=== PATIENT | female | born 1945 | race Caucasian/White ===

== ENCOUNTER 2018-02-13 15:06 | Outpatient (CLI) | payer MEDICARE, BC | END 2018-02-13 15:07 | disposition home or self-care (01) | LOC: BICRAD 15:06 | PROVIDERS: ATTEND Family Medicine | DX: R07.89 Other chest pain (principal) | CPT/HCPCS: 71046 ==

== ENCOUNTER 2018-09-20 11:52 | Emergency (ER) | payer MEDICARE, BC ==
[2018-09-20] MEDS ORDERED: Acetaminophen 325 MG TAB ONE (13:23)
[2018-09-20 13:37] LABS: #Basophils 0.1 thou/uL (0.0-0.2); #Eosinphils 0.2 thou/uL (0.0-0.7); #Lymphocytes 1.4 thou/uL (1.20-3.40); #Monocytes 0.7 thou/uL (0.11-0.59); #Neutrophils 9.1 thou/uL (1.40-6.50); %Basophils 0.7 % (0.0-1.0); %Eosinophils 1.8 % (0.0-10.0); %Lymphocytes 11.9 % (21.0-51.0); %Monocytes 6.3 % (0.0-10.0); %Neutrophils 79.3 % (42.0-75.0); Hemoglobin 13.5 g/dL (12.0-16.0); Mean Corpuscular Hemoglobin 31.8 pg (27.0-31.0); Mean Corpuscular Volume 99.4 fL (78.0-98.0); Mean Platelet Volume 10.4 fL (7.4-10.4); Platelet Count 189 thou/uL (130-400); RBC Distribution Width 11.8 % (11.5-14.5); Red Blood Cell (RBC) Count 4.24 mill/uL (4.20-5.40); White Blood Cell (WBC) Count 11.4 thou/uL (4.8-10.8)
[2018-09-20 13:53] LABS: ALT (SGPT) 22 U/L (8-55); AST (SGOT) 18 U/L (5-34); Albumin 4.2 g/dL (3.4-4.8); Alkaline Phosphatase 104 U/L (40-150); Anion Gap 16 mmol/L (10-20); BUN (Urea Nitrogen) 19 mg/dL (9.8-20.1); Bilirubin, Total 0.6 mg/dL (0.2-1.2); Calc. Creatinine Clearance 0 mL/min (70-130); Carbon Dioxide 25 mmol/L (23-31); Chloride 102 mmol/L (98-107); Estimated GFR-MDRD 64; Glucose 115 mg/dL (83-110); Potassium 5.3 mmol/L (3.5-5.1); Protein, Total 6.2 g/dL (6.0-8.3); Sodium 138 mmol/L (136-145)
[2018-09-20] MEDS ORDERED: Cyclobenzaprine 10 MG TAB ONE (13:54)
[2018-09-20] MEDS ORDERED: Ketorolac Tromethamine 30 MG/ML VIAL ONE (14:35)
--- NOTE | 2018-09-20 14:52 | RAD ---
LUMBAR SPINE 3 VIEWS: Date: 09/20/18 HISTORY: Chronic back pain. COMPARISON: None. FINDINGS: Mild levoscoliosis. Severe facet arthropathy L4-5 and L5-S1. Moderate degenerative disease SI joints. There is Grade I L4 over L5 and L5 over S1 anterolisthesis. No acute fracture or malalignment. IMPRESSION: Advanced degenerative changes. POS: TONYA
[2018-09-20] MEDS ORDERED: predniSONE 20 MG TAB ONE (15:10)
== END 2018-09-20 15:35 | disposition home or self-care (01) ==
LOC: ERS 11:52
DX: M47.896 Other spondylosis, lumbar region (principal); I25.2 Old myocardial infarction; I10 Essential (primary) hypertension; I25.10 Atherosclerotic heart disease of native coronary artery without angina pectoris; Z79.899 Other long term (current) drug therapy; Z79.82 Long term (current) use of aspirin
CPT/HCPCS: 36415; 72100; 80053; 85025; 96372; J1885

== ENCOUNTER 2018-09-26 10:19 | Outpatient (CLI) | payer MEDICARE, BC ==
[~2018-09-26 10:19] MED LIST: Iopamidol 300 61% 100 ML VIAL FS ONE
--- NOTE | 2018-09-26 13:47 | CT ---
CT OF THE CHEST, ABDOMEN, AND PELVIS WITH IV CONTRAST: Date: 09-26-18 Provided Clinical History: Multiple osseous lesions on recent MRI suggestive of metastatic disease. FINDINGS: The heart, pericardium and great vessels demonstrate no acute abnormality. There is near occlusion of the proximal left subclavian artery near the origin due to calcified stenosis. Vascular calcificatio n including coronary calcium is seen. There are multiple primarily ground glass nodules present throughout both lungs, most conspicuously a t the inferior aspect of the right upper lobe, measuring approximately 7 mm. There is a pleural based density present involving the posterior right hemithorax measuring about 2 cm in greatest transverse dimension x 4 mm in thickness. There is no evidence for pleural fluid or pneumothorax. The airway appears patent and of normal calib er. The liver, spleen, pancreas, kidneys, and adrenal glands demonstrate an unremarkable CT appearance. There is a 3.5 cm adnexal dermoid right of midline. There is trace fluid within the pelvic cul-de-sac . There is no bowel dilatation, inflammatory fat stranding, free fluid or lymph node enlargement appa rent. Post-operative changes involving the stomach are demonstrated. Vascular calcifications are noted involving the abdominal aorta and its branches. Multiple lytic lesions are seen involving the axial skeleton. The largest measures about 3 cm within the right posterior acetabulum. A 2.2 cm lesion is also present within the right iliac wing. Largest spinal lesion measures about 2.5 cm involving T9. IMPRESSION: 1. Multiple ground glass pulmonary nodules which, given the concurrent osseous lesions, are also susp icious for metastatic disease. 2. Multiple lytic osseous lesions. In terms of percutaneous access for biopsy, the right iliac lesion may be accessible. 3. No definite evidence for the primary site of malignancy. Myeloma could be considered but does not explain the pulmonary nodules. 4. Conspicuous atherosclerosis including near occlusion of the left subclavian artery origin. POS: TPC
== END 2018-09-26 10:20 | disposition home or self-care (01) ==
LOC: SCSCT 10:19
PROVIDERS: ATTEND Family Medicine
DX: R93.89 Abnormal findings on diagnostic imaging of other specified body structures (principal); R91.8 Other nonspecific abnormal finding of lung field; M89.9 Disorder of bone, unspecified; I70.0 Atherosclerosis of aorta; I70.8 Atherosclerosis of other arteries
CPT/HCPCS: 71260; 74177; Q9967

== ENCOUNTER 2018-09-28 06:54 | Day surgery (SDC) | payer MEDICARE, BC ==
[2018-09-27 15:36] VITALS: BMI 22.9
[2018-09-28 07:17] LABS: PTT 25.9 SEC (22.9-36.1); Prothrombin Time 13.6 SEC (12.0-14.7)
[2018-09-28 08:21] VITALS: BP 97/61; TEMP 98.4
[2018-09-28] MEDS ORDERED: Sodium Bicarbonate 2.5 MEQ/5 ML VIAL ONE (09:09)
--- NOTE | 2018-09-28 13:03 | CT ---
CT GUIDED BIOPSY RIGHT PELVIC BONE MASS: HISTORY: Multiple lytic bone lesions. FINDINGS: After explaining the procedure and answering all questions, the patient was placed on the CT table in prone position. A right posterior approach was planned. Sterile technique, buffered local anesthesia, CT guidance, and a posterior approach were used to care fully advance a 17-gauge trocar needle into the peripheral margin of the oval destructive lesion of t he right iliac wing. Position was confirmed with CT. A total of five 18-gauge core biopsy specimens were obtained. Pathology was not available for intradepartmental consultation. As instructed, samples were placed i n normal formalin liquid and in RPMI for lymphoma evaluation. Tissue was sent to laboratory. The needle was removed. Postprocedure imaging shows no evidence of complication. The patient tolera chauncey the procedure well and was eventually dismissed in good condition. IMPRESSION: Technically successful CT guided right pelvic mass biopsy. Pathology is pending. POS: SOPHIA
== END 2018-09-28 10:50 | disposition home or self-care (01) ==
LOC: CT 06:54
PROVIDERS: ATTEND Internal Medicine Hematology & Oncology
PROC: 0QB23ZX Excision of Right Pelvic Bone, Percutaneous Approach, Diagnostic (ICD-10-PCS; principal; 2018-09-28)
DX: M89.9 Disorder of bone, unspecified (principal); C80.1 Malignant (primary) neoplasm, unspecified; C79.51 Secondary malignant neoplasm of bone; I25.10 Atherosclerotic heart disease of native coronary artery without angina pectoris; E78.5 Hyperlipidemia, unspecified; K21.9 Gastro-esophageal reflux disease without esophagitis; I25.2 Old myocardial infarction; E78.00 Pure hypercholesterolemia, unspecified; Z87.891 Personal history of nicotine dependence; Z79.82 Long term (current) use of aspirin; Z79.899 Other long term (current) drug therapy; Z88.2 Allergy status to sulfonamides; Z95.5 Presence of coronary angioplasty implant and graft
CPT/HCPCS: 72192; 77012; 85610; 85730; 88184; 88307; 88342

== ENCOUNTER 2018-10-10 08:47 | Outpatient (CLI) | payer MEDICARE, BC ==
[2018-10-10] MEDS ORDERED: Gadobenate Dimeglumine 529 MG/1 ML (20ML VIAL) ONE (09:35)
--- NOTE | 2018-10-10 10:48 | MRI ---
MRI THORACIC SPINE WITH AND WITHOUT CONTRAST: CLINICAL HISTORY: Osseous metastatic disease. COMPARISON: Reference is made to chest, abdomen, and pelvic CT 09/26/2018. FINDINGS: There is diffuse multifocal signal abnormality throughout the vertebral column of the imaged thoracol umbar spine which involves both the anterior and posterior elements. No evidence of pathologic intra medullary enhancement visualized within the thoracic spinal cord. There is a compression deformity, pathologic in etiology, given underlying marrow signal abnormality at the L1 segment. There is mild retropulsion of bone at the posterior superior aspect effacing the ventral aspect of the thecal sac. Slight superior end plate concavity is present at T4 with associated marrow edema. Incidental note of areas of signal abnormality of the right posterior chest wall. There are dependen t opacities of each lung, incompletely evaluated. IMPRESSION: 1. Innumerable, diffuse osseous metastatic lesions involving both anterior and posterior column of t he imaged thoracolumbar spine. This does result in a pathologic mild superior end plate compression fracture of L1 with slight retropulsion of bone. Consider MRI of lumbar spine for further characteri zation, as this is at the inferior portion of the imaging field somewhat limiting detail. There is a lso a mild superior end plate compression deformity of T4 without significant retropulsion of bone. 2. There is no pathologic intramedullary enhancement of the thoracic spinal cord identified to indic ate intraspinal dissemination of tumor. POS: C
--- NOTE | 2018-10-10 12:03 | MRI ---
MRI BRAIN WITH AND WITHOUT CONTRAST: DATE: 10/10/2018. HISTORY: A 73-year-old female with C79.51, secondary malignant neoplasm of bone. COMPARISON: None. TECHNIQUE: Multiple sequences obtained in axial, sagittal, and coronal planes; pre and post IV injection of gado linium-based contrast agent: 12 mL MultiHance. FINDINGS: There are multiple very small enhancing intraosseous lesions of the calvarium which are T1 hypointens e, moderately T2 hyperintense, and enhance. These are less than 1 cm in size. The cerebellar tonsils are peg-shaped and protrude caudal to the foramen magnum a distance of approxi mately 9 mm. Ventricles are normal in size and configuration. No mass effect or midline shift. No evidence of recent or remote intraaxial hemorrhage. No restricted diffusion. No intraaxial signal a bnormality or abnormal intraaxial enhancement or mass. IMPRESSION: 1. Multiple very small enhancing focal osseous lesions of the calvarium, suspicious for osseous meta stases. 2. No intracranial metastatic disease. 3. Chiari-I malformation. 4. Otherwise, the brain is normal. BERNARDO Garrison POS: PEDRO
== END 2018-10-10 08:48 | disposition home or self-care (01) ==
LOC: MRI 08:47
PROVIDERS: ATTEND Internal Medicine Hematology & Oncology
DX: C79.51 Secondary malignant neoplasm of bone (principal); M89.9 Disorder of bone, unspecified; G93.5 Compression of brain; M43.9 Deforming dorsopathy, unspecified
CPT/HCPCS: 70553; 72157; A9577

== ENCOUNTER 2018-10-16 09:56 | Outpatient (CLI) | payer MEDICARE, BC ==
--- NOTE | 2018-10-22 13:21 | MMO ---
Bilateral MAMMO Bilat Screen [facility]DI[facility]O. CLINICAL HISTORY: Patient is 73 years old and is seen for screening. The patient has no family history of breast cancer. The patient has a history of other cancer in 2018. VIEWS: The views performed were: bilateral craniocaudal with tomosynthesis and bilateral mediolateral oblique with tomosynthesis. FILMS COMPARED: The present examination has been compared to prior imaging studies performed at [facility] on 05/18/2010, 05/24/2010 and 08/28/2015. MAMMOGRAM FINDINGS: There are stable benign appearing calcifications seen in both breasts. There are no suspicious masses, calcifications or areas of architectural distortion. IMPRESSION: THERE IS NO MAMMOGRAPHIC EVIDENCE OF MALIGNANCY. A ROUTINE FOLLOW-UP MAMMOGRAM IN 1 YEAR IS RECOMMENDED. THE RESULTS OF THIS EXAM WERE SENT TO THE PATIENT. ACR BI-RADS Category 2 - Benign finding MAMMOGRAPHY NOTE: 1. A negative mammogram report should not delay a biopsy if a dominant of clinically suspicious mass is present. 2. Approximately 10% to 15% of breast cancers are not detected by mammography. 3. Adenosis and dense breasts may obscure an underlying neoplasm.
== END 2018-10-16 09:57 | disposition home or self-care (01) ==
LOC: BICMAMMO 09:56
PROVIDERS: ATTEND Internal Medicine Hematology & Oncology
DX: Z12.31 Encounter for screening mammogram for malignant neoplasm of breast (principal); Z85.89 Personal history of malignant neoplasm of other organs and systems
CPT/HCPCS: 77063; 77067

== ENCOUNTER 2018-11-06 10:10 | Outpatient (CLI) | payer MEDICARE, BC ==
--- NOTE | 2018-11-06 10:31 | RAD ---
XR Wrist Rt 2 View: 11/06/2018 12:00 AM CLINICAL INDICATION: Pain COMPARISON: None. FINDINGS: Fracture:No fracture. Arthropathy:Mild arthropathy. Incidental findings:None of significance. IMPRESSION: 1. No acute osseous abnormality.
== END 2018-11-06 10:11 | disposition home or self-care (01) ==
LOC: BICRAD 10:10
PROVIDERS: ATTEND Family Medicine
DX: M25.531 Pain in right wrist (principal)

== ENCOUNTER 2018-12-25 07:24 | Outpatient (CLI) | payer MEDICARE, BC ==
--- NOTE | 2018-12-25 15:02 | PET ---
PET CT: HISTORY: A 73-year-old female with multiple myeloma and bone mets. Exam requested for staging. COMPARISON: PET CT of 10/09/2018 from [facility], not [place]. TECHNIQUE: PET scanning with CT attenuaion correction was performed from the base of the brain through the proxi mal thighs following intravenous administration of 11.5 mCi [id number] in the left antecu bital fossa. FINDINGS: No delilah hypermetabolism is seen in the neck, chest, axillae, abdomen, pelvis, or inguinal regions. No hypermetabolic pulmonary nodules, liver, or adrenal lesions are seen. A solitary residual focus of increased FDG localization is seen in the skeleton at S2 level with an S UV of 3.1 (previously 3.3). There is physiologic activity in the GI and tracts, the visualized portions of the brain, and para spinal musculature. The CT scan used for attenuation correction demonstrates non-hypermetabolic ill-defined pulmonary les ions which were also seen on the previous exam and appear stable. Multiple lytic lesions are seen in the skeleton, only one of which appears hypermetabolic on PET. The 1.5 cm left adrenal adenoma and the 3.2 cm right ovarian dermoid cyst are also stable and demonstrate no abnormal FDG localization. No pleural or pericardial effusions are seen. IMPRESSION: Interval improvement since 10/09/2018. POS: TONYA
== END 2018-12-25 07:25 | disposition home or self-care (01) ==
LOC: PET 07:24
PROVIDERS: ATTEND Internal Medicine Hematology & Oncology
DX: C90.00 Multiple myeloma not having achieved remission (principal); C79.51 Secondary malignant neoplasm of bone
CPT/HCPCS: 78815; A9552

== ENCOUNTER 2019-05-09 07:42 | Outpatient (CLI) | payer MEDICARE, BC ==
--- NOTE | 2019-05-09 12:35 | PET ---
PET SCAN WITH CT ATTENUATION CORRECTION: HISTORY: Multiple myeloma, not achieving remission. COMPARISON: 12/25/2018 TECHNIQUE: PET scan with CT attenuation correction is performed from the base of the brain to the proximal thigh s following the intravenous administration of 11.9 millicuries of F18 fluorodeoxyglucose. FINDINGS: HEAD AND NECK: No abnormal FDG localization. CHEST: No abnormal FDG localization. CT used for attenuation correction demonstrates multiple ground glass opacities and nodules throughout the lung parenchyma, essentially stable. There is no associate d hypermetabolic activity. ABDOMEN AND PELVIS: No abnormal FDG localization. OSSEOUS STRUCTURES: There is evidence of a stable mild compression fracture with sclerosis at the L1 level. There is a lucent focus with peripheral sclerosis at T9, suggesting a treated metastatic lesio n. This lesion is similar to the previous examination. Additional treated metastatic deposit at T10- L1 is noted. Additional treated metastatic deposit in the right iliac wing and left iliac wing is no chauncey. There is a treated metastatic deposit in the left S1 level. Uptake at the S2 level is not apprec iated on the current examination. Currently there does not appear to be any abnormal FDG localizatio n in the osseous structures. Stable right adnexal dermoid. IMPRESSION: 1. Interval resolution of previously noted hypermetabolic focus of the S2 level. There is no evidence of new osseous metastases. 2. Multifocal nonhypermetabolic lung parenchymal opacities and nodules. POS: TONYA
== END 2019-05-09 07:43 | disposition home or self-care (01) ==
LOC: PET 07:42
PROVIDERS: ATTEND Internal Medicine Hematology & Oncology
DX: C90.00 Multiple myeloma not having achieved remission (principal); C79.51 Secondary malignant neoplasm of bone; R91.8 Other nonspecific abnormal finding of lung field
CPT/HCPCS: 78815; 81050; 84156; 84166; 86335; A9552

== ENCOUNTER 2019-08-22 07:30 | Outpatient (CLI) | payer MEDICARE, BC ==
--- NOTE | 2019-08-22 10:22 | PET ---
Radionucleotide PET scan with CT attenuation correction HISTORY: Multiple myeloma. Restaging. COMPARISON: PET scan 05/09/2019. Multiple previous PET scans and CT exams. FINDINGS: Physiologic uptake of radiotracer throughout the enteric system and along each urinary trac t. Scattered mild nonspecific muscular uptake. No abnormal areas of increased radiotracer uptake are apparent within the widespread osseous lesions or elsewhere. Nondiagnostic CT attenuation correction images show prominent arterial calcification. Probable high-g rade stenosis at the origin of the left subclavian artery. Scattered areas of parenchymal scarring throughout each lung are similar in appearance to the previou s exam. Numerous lesions throughout the skeleton are again demonstrated. Most are lytic. Some are sclerotic. At the expected location of the right adnexa, a complex mass measuring up to 4.2 cm x 3.3 cm greatest diameters on the axial images contains a fat/fluid level and is consistent with a dermoid lesion. There is stable on CT exams dating back to 2007. Extensive postoperative changes of the bowel. Minimal free fluid in the dependent portion of the pelv is. IMPRESSION: No evidence of recurrent or residual neoplasm. Prominent atherosclerosis with probable high-grade stenosis of the left subclavian artery origin. Right adnexal dermoid, stable.
== END 2019-08-22 07:31 | disposition home or self-care (01) ==
LOC: PET 07:30
PROVIDERS: ATTEND Internal Medicine Hematology & Oncology
DX: C79.51 Secondary malignant neoplasm of bone (principal); C90.00 Multiple myeloma not having achieved remission; I70.8 Atherosclerosis of other arteries; N83.8 Other noninflammatory disorders of ovary, fallopian tube and broad ligament
CPT/HCPCS: 78815; A9552

== ENCOUNTER 2019-12-05 08:16 | Outpatient (CLI) | payer MEDICARE, BC ==
--- NOTE | 2019-12-05 13:19 | PET ---
PET scan with CT attenuation correction HISTORY: Multiple myeloma not having achieved remission. Restaging. COMPARISON: 08/22/2019. FINDINGS: Physiologic uptake of radiotracer is again demonstrated throughout the enteric system and a long each urinary tract. No abnormal areas of radiotracer uptake are associated with the widespread osseous lytic and/or blastic lesions or elsewhere. Nondiagnostic CT attenuation correction images show prominent arterial calcification. Scattered areas of parenchymal scarring and non-hypermetabolic nodularity involving each lung are similar in appearance to the previous exam. Dermoid lesion of the right ovary is stable in appearance. IMPRESSION : No evidence of recurrent neoplasm. Prominent atherosclerosis. Right adnexal dermoid, stable.
== END 2019-12-05 08:17 | disposition home or self-care (01) ==
LOC: PET 08:16
PROVIDERS: ATTEND Internal Medicine Hematology & Oncology
DX: C90.00 Multiple myeloma not having achieved remission (principal); C79.51 Secondary malignant neoplasm of bone; I70.90 Unspecified atherosclerosis; D28.7 Benign neoplasm of other specified female genital organs
CPT/HCPCS: 78815; 80053; 82248; 83615; 83883 ×2; 84100; 84165; 84550; A9552; 36415

== ENCOUNTER 2020-02-14 08:29 | Day surgery (SDC) | payer MEDICARE, BC ==
[2020-02-14 08:59] LABS: #Basophils 0.1 thou/uL (0.0-0.2); #Eosinphils 0.3 thou/uL (0.0-0.7); #Lymphocytes 1.1 thou/uL (1.20-3.40); #Monocytes 0.6 thou/uL (0.11-0.59); %Basophils 2.1 % (0.0-1.0); %Lymphocytes 27.5 % (21.0-51.0); %Monocytes 13.5 % (0.0-10.0); %Neutrophils 49.8 % (42.0-75.0); Hemoglobin 12.4 g/dL (12.0-16.0); Mean Corpuscular HGB CONC 31.8 g/dL (32.0-36.0); Mean Corpuscular Hemoglobin 30.2 pg (27.0-31.0); Mean Platelet Volume 10.4 fL (7.4-10.4); Platelet Count 151 thou/uL (130-400); RBC Distribution Width 15.1 % (11.5-14.5); Red Blood Cell (RBC) Count 4.11 mill/uL (4.20-5.40); White Blood Cell (WBC) Count 4.1 thou/uL (4.8-10.8)
[2020-02-14 09:06] LABS: PTT 26.6 sec (22.9-36.1); Prothrombin Time 13.5 sec (12.0-14.7)
[2020-02-14] MEDS ORDERED: Sodium Bicarbonate 2.5 MEQ/5 ML VIAL ONE (10:23)
[2020-02-14 11:20] VITALS: BP 154/76; TEMP 98.4; BMI 25.0
--- NOTE | 2020-02-14 12:36 | CT ---
CT-guided bone marrow biopsy and aspiration: DATE: 02/14/2020 HISTORY: 74-year-old female with multiple myeloma. Evaluate response to treatment. TECHNIQUE: Signed informed consent obtained. Patient placed prone on CT table. Skin of lower back prepared and d raped in usual sterile fashion. 25-gauge needle used to apply buffered lidocaine superficially, then at the periosteum of the right PSIS. 11-gauge Arrow [employer] bone marrow biopsy needle with tro car advanced with distal tip slightly deep to the posterior cortical surface of the PSIS. Trocar removed. Marrow aspiration performed with 2 syringes, 3 mL in first syringe and 6 mL in second syring e, both of which were given to porcelain technician from laboratory. Next, the electric power medical delivery driver was connected to the biopsy needle. The entire power medical delivery driver and 11-gauge needle set was advanced and retr acted, yielding a bone marrow core tissue sample, which was also given to the seed laboratory assistant. Compression was held at the puncture site until hemostasis achieved. Patient tolerated pr ocedure well. No complications. IMPRESSION: Successful CT-guided bone marrow biopsy and aspiration.
== END 2020-02-14 12:05 | disposition home or self-care (01) ==
LOC: CT 08:29
PROVIDERS: ATTEND Internal Medicine Hematology & Oncology
PROC: 07DR3ZX Extraction of Iliac Bone Marrow, Percutaneous Approach, Diagnostic (ICD-10-PCS; principal; 2020-02-14)
DX: C90.00 Multiple myeloma not having achieved remission (principal); C79.51 Secondary malignant neoplasm of bone; M19.90 Unspecified osteoarthritis, unspecified site; I10 Essential (primary) hypertension; E78.00 Pure hypercholesterolemia, unspecified; I25.2 Old myocardial infarction; F41.9 Anxiety disorder, unspecified; F32.9 Major depressive disorder, single episode, unspecified; K21.9 Gastro-esophageal reflux disease without esophagitis; Z87.891 Personal history of nicotine dependence; Z79.01 Long term (current) use of anticoagulants; Z79.82 Long term (current) use of aspirin; Z79.899 Other long term (current) drug therapy; Z88.2 Allergy status to sulfonamides; Z95.5 Presence of coronary angioplasty implant and graft; Z94.81 Bone marrow transplant status
CPT/HCPCS: 20225; 36415; 77012; 84156; 84166; 85025; 85097; 85610; 85730; 86335; 88184; 88237; 88264; 88280; 88305; 88311; 88313; 88341; 88342; 88365

== ENCOUNTER 2020-06-09 15:02 | Inpatient (IN) | payer MEDICARE, BC ==
[~2020-06-09 15:02] MED LIST changes: -Iopamidol 300 61% 100 ML VIAL FS ONE; +Iopamidol-370 76% 500 ML 1 ML ONE
--- NOTE | 2020-06-09 16:17 | RAD ---
XR Chest 1 View Portable History: Chest pain Comparison: PET/CT December 05, 2019 Findings: Scattered scar within the left lower lobe and lingula. Nodular density projects of the righ t upper lobe. This is a location as well as felt to be scarring recent PET/CT. No acute osseous abnormality. Cardiac silhouette and mediastinal contours are within normal limits. Impression: Right upper lobe nodule for which nonemergent chest CT recommended.
[2020-06-09 16:56] LABS: #Basophils 0.1 thou/uL (0.0-0.2); #Eosinphils 0.2 thou/uL (0.0-0.7); #Lymphocytes 0.9 thou/uL (1.20-3.40); #Monocytes 0.6 thou/uL (0.11-0.59); #Neutrophils 2.5 thou/uL (1.40-6.50); %Basophils 1.8 % (0.0-1.0); %Eosinophils 3.7 % (0.0-10.0); %Lymphocytes 20.3 % (21.0-51.0); %Monocytes 13.8 % (0.0-10.0); %Neutrophils 60.4 % (42.0-75.0); Hemoglobin 12.9 g/dL (12.0-16.0); Mean Corpuscular HGB CONC 33.2 g/dL (32.0-36.0); Mean Corpuscular Hemoglobin 31.2 pg (27.0-31.0); Mean Corpuscular Volume 93.9 fL (78.0-98.0); Mean Platelet Volume 9.8 fL (7.4-10.4); Platelet Count 146 thou/uL (130-400); RBC Distribution Width 13.6 % (11.5-14.5); Red Blood Cell (RBC) Count 4.14 mill/uL (4.20-5.40); White Blood Cell (WBC) Count 4.2 thou/uL (4.8-10.8)
[2020-06-09 17:18] LABS: ALT (SGPT) 25 U/L (8-55); AST (SGOT) 22 U/L (5-34); Alkaline Phosphatase 49 U/L (40-110); Anion Gap 14 mmol/L (10-20); BUN (Urea Nitrogen) 13 mg/dL (9.8-20.1); Bilirubin, Total 0.4 mg/dL (0.2-1.2); CK (CPK) 126 U/L (29-168); Calc. Creatinine Clearance 0 mL/min (70-130); Calcium 7.8 mg/dL (7.8-10.44); Carbon Dioxide 24 mmol/L (23-31); Chloride 108 mmol/L (98-107); Estimated GFR-MDRD 64; Globulin 2.1 g/dL (2.4-3.5); Glucose 95 mg/dL (83-110); Potassium 3.7 mmol/L (3.5-5.1); Protein, Total 6.1 g/dL (6.0-8.3); Sodium 142 mmol/L (136-145)
[2020-06-09 17:50] LABS: CKMB 3.6 ng/mL (0-6.6)
[2020-06-09] MEDS ORDERED: Aspirin Chewable 81 MG TAB ONE (19:12)
[2020-06-09 20:12] LABS: SARS-CoV-2 NAA Rapid Test Not Detected (NotDetected)
--- NOTE | 2020-06-09 20:26 | CT ---
CT arteriogram chest with IV contrast and 3-D imaging HISTORY: Chest pain. FINDINGS: There is good contrast opacification of the pulmonary arteries and thoracic aorta with norm al branching of the great vessels at the aortic arch. Lungs remain hyperinflated with scattered areas of parenchymal scarring. Focal area of nodular scarri ng at the anterior aspect of the right upper lobe is unchanged from the 12/05/2019 PET exam. No pleural fluid or mediastinal adenopathy. Within the partially visualized upper abdomen, there are postoperative changes of the stomach. Old he aled left lateral mid rib fracture is apparent. Large hemangioma within the T9 vertebral body is evident. Mild chronic-appearing superior endplate co mpressions involve the T10 and L1 vertebral bodies. IMPRESSION : No evidence of pulmonary embolus. Incidental-type findings as detailed above.
--- NOTE | 2020-06-09 20:37 | PDOC.HHP ---
Hospitalist HPI - History of Present Illness Elevated troponin History of Present Illness: Ms. Dg caldwell a 74-year-old female with a past medical history of multiple myeloma s/p bone marrow transplant in 2019, cardiac stents x3 in 2015, A. fib on Eliquis, hypertension, hyperlipidemia, GERD who presents to the emergency room sent in from Dr. Latham office due to elevated troponin. Patient reports that on Monday, 4 days prior to admission she developed an odd pressure sensation in her chest which she thought was indigestion as well as some left arm spasms. Patient waited for symptoms to disappear but continued to have mild indigestion the next day. Patient was also having muscle spasms which she attributes as a known side effect of her multiple myeloma medication Revlimid. She contacted Dr. Candelaria's office who recommended she see Dr. Latham her marketing analytics specialist. The nurse practitioner Dr. Latham office December outpatient troponin which was elevated to 2.9. Patient sent immediately to emergency room. Currently she denies any chest pain, indigestion, nausea. Reports she otherwise feels fine and has no concerns or complaints. In emergency room initial vital signs 188/61, 74, 18, 98% on room air, 98.1. EKG showed nonspecific T wave depressions and normal sinus rhythm. Troponin was 2.728. Chest x-ray with no acute findings, but incidental right upper lobe nodule. BUNs/CR 13/0.87. H/H 12.9/30.9. WBC 4.2. Patient received aspirin 325 mg in the emergency room. Hospitalist ROS - Review of Systems Constitutional: denies: fever, chills, sweats, weakness, malaise, other Eyes: denies: pain, vision change, conjunctivae inflammation, eyelid inflammation, redness, other ENT: denies: ear pain, ear discharge, nose pain, nose discharge, nose congestion, mouth pain, mouth swelling, throat pain, throat swelling, other Respiratory: denies: cough, dry, shortness of breath, hemoptysis, SOB with excertion, pleuritic pain, sputum, wheezing, other Cardiovascular: reports: chest pain. denies: palpitations, orthopnea, paroxysmal noc. dyspnea, edema, light headedness, other Gastrointestinal: reports: nausea. denies: vomiting, abdominal pain, diarrhea, constipation, melena, hematochezia, other Genitourinary: denies: dysuria, frequency, incontinence, hematuria, retention, other Musculoskeletal: denies: neck pain, shoulder pain, arm pain, back pain, hand pain, leg pain, foot pain, other Skin: denies: rash, lesions, michelle, bruising, other Neurological: denies: weakness, numbness, incoordination, change in speech, confusion, seizures, other - Medication Medications: Medications include Atorvastatin Acetamide Metoprolol Relevant Omeprazole Aspirin Multivitamin Patient has allergy to sulfa antibiotics Hospitalist History - Past Medical History Other Medical History: Past medical history significant for Coronary artery disease status post cardiac stents in 2015 Hypertension Hyperlipidemia Atrial fibrillation (post bone marrow transplant) - Past Surgical History Other Surgical History: Past surgical history includes Bone marrow transplant in 2019 secondary to multiple myeloma, now in remission Cardiac stent x2 Benign abdominal wall tumor resection Tonsillectomy - Family History Other Family History: Denies family history of early cardiac disease or cancer - Social History Smoking Status: Former smoker (Quit in 2003) Alcohol: reports: Rare Drugs: reports: none Living Situation: With Family Activity level: independent ambulation - Exam General Appearance: NAD, awake alert Eye: PERRL, anicteric sclera ENT: normocephalic atraumatic, no oropharyngeal lesions, moist mucosa Neck: supple, symmetric, no JVD, no thyromegaly, no lymphadenopathy, no carotid bruit Heart: RRR, no murmur, no gallops, no rubs, normal peripheral pulses Respiratory: CTAB, no wheezes, no rales, no ronchi, normal chest expansion, no tachypnea, normal percussion Gastrointestinal: soft, non-tender, non-distended, normal bowel sounds, no palpable masses, no hepatomegaly, no splenomegaly, no bruit Extremities: no cyanosis, no clubbing, no edema Skin: normal turgor, no lesions, no rashes Neurological: cranial nerve grossly intact, normal sensation to touch, no weakness, no focal deficits, no new deficit Musculoskeletal: normal tone, normal strength, no muscle wasting Psychiatric: normal affect, normal behavior, A&O x 3 Hospitalist Results - Labs Result Diagrams: 06/09/20 16:41 06/09/20 16:41 Lab results: WBC 4.2 thou/uL (4.8-10.8) L 06/09/20 16:41 Hgb 12.9 g/dL (12.0-16.0) 06/09/20 16:41 Hct 38.9 % (36.0-47.0) 06/09/20 16:41 MCV 93.9 fL (78.0-98.0) 06/09/20 16:41 Plt Count 146 thou/uL (130-400) 06/09/20 16:41 Neutrophils % 60.4 % (42.0-75.0) 06/09/20 16:41 Sodium 142 mmol/L (136-145) 06/09/20 16:41 Potassium 3.7 mmol/L (3.5-5.1) 06/09/20 16:41 Chloride 108 mmol/L (98-107) H 06/09/20 16:41 Carbon Dioxide 24 mmol/L (23-31) 06/09/20 16:41 BUN 13 mg/dL (9.8-20.1) 06/09/20 16:41 Creatinine 0.87 mg/dL (0.6-1.1) 06/09/20 16:41 Glucose 95 mg/dL (83-110) 06/09/20 16:41 Calcium 7.8 mg/dL (7.8-10.44) 06/09/20 16:41 Total Bilirubin 0.4 mg/dL (0.2-1.2) 06/09/20 16:41 AST 22 U/L (5-34) 06/09/20 16:41 ALT 25 U/L (8-55) 06/09/20 16:41 Alkaline Phosphatase 49 U/L (40-110) 06/09/20 16:41 Creatine Kinase 126 U/L (29-168) 06/09/20 16:41 CK-MB (CK-2) 3.6 ng/mL (0-6.6) 06/09/20 16:41 Troponin I 2.728 ng/mL (< 0.028) H* 06/09/20 16:41 B-Natriuretic Peptide 189.5 pg/mL (0-100) H 06/09/20 16:41 Serum Total Protein 6.1 g/dL (6.0-8.3) 06/09/20 16:41 Albumin 4.0 g/dL (3.4-4.8) 06/09/20 16:41 Hospitalist H&P A/P - Plan Plan: NSTEMI 74-year-old female with past medical history significant for coronary artery disease status post cardiac stents in 2014, A. fib on Eliquis, multiple myeloma, hypertension, hyperlipidemia who presents with ACS symptoms 4 days prior to admission found to have significantly elevated troponin to 2.7. EKG with no ST elevation, indeterminate T wave inversions. Patient is currently chest pain and symptom free. Dr. Boss of cardiology was consulted with plans for catheterization in the morning. Will hold patient's Eliquis in anticipation of possible catheterization, and continue aspirin. Dr. Boss did not feel there was an indication for heparin or Lovenox anticoagulation at this time since patient's symptoms began 4 days ago and she is currently asymptomatic. Plan Cardiology consult, recommendations appreciated Plan for cardiac cath in the morning Trend troponin Telemetry monitoring TSH, magnesium ASA, statin, nitro as needed History of multiple myeloma Patient has history of multiple myeloma status post bone marrow transplant [address] Candelaria. Patient's also myeloma is in remission, and she is maintained on Revlimid. Patient concerned that Revlimid may be playing a role in her suspected heart attack and symptoms. Will consult Dr. Candelaria for further recommendations. Plan Oncology consult, recommendations appreciated Atrial fibrillation History of atrial fibrillation which was noted after her bone marrow transplant in 2019. Patient is on 5 mg of Eliquis twice daily. As discussed with Dr. Boss, will hold all anticoagulation with plans for possible heart catheterization in the morning. Plan Hold Eliquis in anticipation of heart cath Telemetry monitoring Hypertension History of hypertension on home metoprolol, will continue once medications confirmed. Hyperlipidemia History of hyperlipidemia. We will continue home atorvastatin. GERD Will substitute home omeprazole for pantoprazole. DVT prophylaxisSCDs Full code Case discussed with attending physician, Dr. Pascal.
[2020-06-09] MEDS ORDERED: Nitroglycerin 0.4 MG TAB (25 Tab Bottle) SL PRN (20:46)
[2020-06-09] MEDS ORDERED: Aspirin Chewable 81 MG TAB PO SCH (21:00)
[2020-06-09 21:52] LABS: Critical Call Chem Troponin I RESULT DECREASING; Troponin I 2.692 ng/mL (< 0.028)
[2020-06-09] MEDS: Atorvastatin Calcium 40 MG TAB PO SCH (23:48)
--- NOTE | 2020-06-10 01:14 | CON ---
DATE OF CONSULTATION: HISTORY: Patient is a 74-year-old woman, who presents for evaluation of chest discomfort. The patient has a previous history of coronary artery disease. She states she underwent PTCA and stent placements in 2004. The patient has subsequently done well. She has been on medical therapy. The patient has developed paroxysmal atrial fibrillation,and is on chronic anticoagulation therapy. 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 The patient was in her usual state of health until Monday when she developed midsternal chest discomfort that lasted for several hours. She did not seek medical attention. The patient called the office today and was sent to the emergency room for further evaluation. the patient has had no further chest discomfort. PAST MEDICAL HISTORY: 1. Multiple myeloma. 2. Hypertension. 3. CAD. 4. Dyslipidemia. PAST SURGICAL HISTORY: Stomach surgery, and bone marrow transplant. SOCIAL HISTORY: Nonsmoker. MEDICATIONS: 1. Lipitor 80 daily. 2. Aspirin 81 daily. 3. Eliquis 5 b.i.d. 4. Zetia 10 daily. 5. Revlimid 10 daily. 6. Toprol 25 XL daily. 7. Prilosec 20 daily. ALLERGIES: SULFA DRUGS. REVIEW OF SYSTEMS: 10-point systems otherwise unremarkable. No history of easy bruising or bleeding. PHYSICAL EXAMINATION: GENERAL: Well-developed woman, in no acute distress. VITAL SIGNS: Blood pressure is 120/80. NECK: No jugular venous distention. LUNGS: Clear to auscultation. HEART: Regular rate and rhythm. Normal S1, S2. No murmurs. ABDOMEN: Nondistended. EXTREMITIES: Showed no edema. VASCULAR: Radial pulses 2+. LABORATORY DATA: Sodium 142, potassium 3.7, chloride 108, bicarbonate 24, BUN 13, creatinine 0.87, glucose is 95. Troponin was 2.7. White blood cell count 4.2, hemoglobin 12.9, hematocrit 38.9, and her platelets were 146. EKG normal sinus rhythm with a T-wave abnormality suggestive of ischemia. IMPRESSION: 1. Non-Q-wave myocardial infarction. 2. History of PTCA and stent placement. 3. Hypertension. 4. Dyslipidemia. 5. Multiple myeloma. This patient has suffered a small non-Q-wave myocardial infarction several days ago. The patient will be admitted to telemetry. I will restart the patient on her aspirin and Toprol. Further recommendations will follow from Dr. Latham. We will follow this patient with you through her hospitalization. Job ID: [id number] [facility]
[2020-06-10 02:19] LABS: Troponin I 2.812 ng/mL (< 0.028)
[2020-06-10 03:12] VITALS: BMI 23.9
[2020-06-10] MEDS ORDERED: ALPRAZolam 0.25 MG TAB PO PRN (04:27)
[2020-06-10 07:49] LABS: Cardiac Risk 2.2 (Less than 4.5)
[2020-06-10] MEDS ORDERED: Communication Order-Pharmacy FS SCH ×2 (08:30→19:00)
--- NOTE | 2020-06-10 08:57 | PRG ---
DATE OF SERVICE: 06/10/2020 SUBJECTIVE: Ms. Conte is a pleasant 74-year-old woman, whom I have seen and evaluated in the past. She underwent a successful stent placed to the right coronary artery in 2004. She has done well since that time. She recently presented with atypical pain, felt to be acid reflux. It was recommended she go to the ER for troponin, which was positive. She was subsequently admitted. She is currently pain free. OBJECTIVE: GENERAL: Patient is a pleasant female, who is in no acute distress. The patient appears their stated age. VITAL SIGNS: Blood pressure 130/58, pulse 59, temperature 97.9. NEUROLOGIC: The patient is alert and oriented x3 with no focal neurologic deficits. HEENT: Sclerae without icterus. Mouth has moist mucous membranes with normal pallor. NECK: No JVD. Carotid upstroke brisk. No bruits bilaterally. LUNGS: Clear to auscultation with unlabored respirations. BACK: No scoliosis or kyphosis. CARDIAC: Regular rate and rhythm with normal S1 and S2. No S3 or S4 noted. No significant rubs, murmurs, thrills, or gallops noted throughout the precordium. PMI is not displaced. There is no parasternal heave. ABDOMEN: Soft, nontender, nondistended. No peritoneal signs present. No hepatosplenomegaly. No abnormal striae. EXTREMITIES: 2+ femoral and 2+ dorsalis pedis pulses. No cyanosis, clubbing, or edema. SKIN: No gross abnormalities. PERTINENT LABORATORY DATA: As above. IMPRESSION: 1. Non-Q-wave myocardial infarction. 2. CAD. 3. Status post stent placement. RECOMMENDATIONS: Ms. Conte' troponin was positive. She coronary angiography plus PCI. I discussed procedure in full detail with Ms. Conte. Risks include, but not limited to the following: , stroke, AK, need for emergency surgery, loss of limb, bleeding, and infection, as well as a reaction to the dye causing kidney failure and needing long-term dialysis. I also discussed the risks of PCI to include all of the above including coronary dissection and perforation in addition to acute stent thrombosis and restenosis. All questions about the procedure were answered. Given the above, the patient agreed to proceed with coronary angiography and possible PCI. All questions were answered. I also discussed drug coated versus nondrug-coated stent placement. There were no contraindications. We will proceed if needed. We will try a radial approach given she is currently on anticoagulation. Her last dose was yesterday morning. Job ID: [id number]
[2020-06-10] MEDS: Sodium Chloride 0.9% 1,000 ML IV SCH ×3 (09:09→22:29)
[2020-06-10] MEDS: Aspirin 81 mg Enteric Coated Tablet PO SCH (09:10)
--- NOTE | 2020-06-10 11:15 | CON ---
DATE OF CONSULTATION: REASON FOR CONSULTATION: Multiple myeloma. HISTORY OF PRESENT ILLNESS: Ms. Conte is a pleasant 74-year-old female who has nonsecretory kappa light chain multiple myeloma. She had a stem cell transplant in January of 2019 and has been in remission since that time. She has been on maintenance Revlimid with a recent dose reduction to 5 mg daily. When she was on 10 mg Revlimid, she was having muscle cramping. With the dose reduction, she only has some muscle twitching. This was what happened on Monday. She began to have an increase in sort of muscle aches including some left arm pain. She had a drop in her blood pressure, but no chest pain or diaphoresis. This continued over the weekend, but had resolved on Monday. She contacted Dr. Latham who did an outpatient troponin on Monday, it was elevated at 2.4. She was instructed to return to the emergency room for further evaluation. She is planning to have a heart catheterization today. PAST MEDICAL HISTORY: 1. Nonsecretory light chain multiple myeloma, status post stem cell transplant. 2. [place] in 2004. 3. Atrial fibrillation. 4. High cholesterol. 5. Arthritis. 6. GERD. PAST SURGICAL HISTORY: 1. Cardiac stents. 2. Stem cell transplant. 3. Removal of benign stomach wall tumor. ALLERGIES: TO SULFA. HOME MEDICATIONS: 1. Alprazolam. 2. Aspirin 81 mg. 3. Atorvastatin. 4. Ezetimibe. 5. Tramadol. 6. Eliquis 5 mg twice a day. 7. Prilosec. 8. Metoprolol. 9. Revlimid 5 mg. FAMILY HISTORY: Father had colon cancer. SOCIAL HISTORY: . Has 4 children. Lives alone. 37 pack-year history of smoking. No alcohol or illicit drug use. REVIEW OF SYSTEMS: 12-point review of systems is negative except for noted in HPI. PHYSICAL EXAMINATION: VITAL SIGNS: Temperature is 98.2, pulse is 54, respiratory rate 14, blood pressure is 130/58. She is 98% on room air. GENERAL: A well-developed, well-nourished female, in no acute distress. HEENT: Normocephalic, atraumatic. Pupils are equal and reactive to light. NECK: Supple. CV: Regular rate and rhythm. LUNGS: Clear. ABDOMEN: Soft and nontender. Bowel sounds are positive. EXTREMITIES: No clubbing or cyanosis. NEUROLOGIC: Nonfocal. PERTINENT LABS AND X-RAYS: WBC is 4.2, hemoglobin 12.9, hematocrit 38.9, and platelet count 246,000, 60% neutrophils, 23% lymphocytes, 13% monocytes. Sodium is 142, potassium 3.7, chloride 108, CO2 is 24, BUN is 13, creatinine 0.87, calcium 7.8, bilirubin 0.4, AST is 22, ALT is 25, alkaline phosphatase is 49, creatine kinase is 126, CK-MB is 3.6, troponin is 2.692. BNP is 189. Serum total protein 6.1, albumin 4.0, globulin 2.1. COVID PCR negative. CT angio of the chest showed no evidence of pulmonary emboli. ASSESSMENT: 1. Acute myocardial infarction. 2. Multiple myeloma, status post stem cell transplant on maintenance low-dose Revlimid. DISCUSSION: The patient has a history of coronary artery disease. She was scheduled for heart catheterization today. Her Revlimid will be held. She is due for a PET scan, so she was scheduled for a PET scan next week and then to see Dr. Candelaria to discuss results, so we would recommend holding Revlimid until she was seen in our office on June 22. The case will be discussed with Dr. Candelaria. Thank you for the consult. Job ID: [id number]
[2020-06-10] MEDS ORDERED: Verapamil 5 MG/2 ML VIAL ONE (11:54)
[2020-06-10] MEDS ORDERED: Heparin 10,000 UNITS/ 10 ML VIAL ONE (11:54)
[2020-06-10] MEDS ORDERED: Nitroglycerin 100MG/250ML BOT 250 ML ONE (11:54)
[2020-06-10] MEDS ORDERED: Midazolam HCl 2 mg/2 ml Vial ONE (12:20)
[2020-06-10] MEDS ORDERED: Fentanyl 100 MCG/2 ML VIAL ONE (12:20)
[2020-06-10] MEDS ORDERED: Nitroglycerin 4.9 GM Bottle ONE (12:45)
[2020-06-10] MEDS ORDERED: Ondansetron PF 4 MG/2 ML Vial IVP PRN (13:33)
[2020-06-10] MEDS: Acetaminophen 325 MG TAB PO PRN (15:18)
[2020-06-10] MEDS: traMADol HCl 50 MG TAB PO PRN ×2 (15:44→22:32)
--- NOTE | 2020-06-10 16:17 | PDOC.HOSPP ---
- Subjective Encounter Date: 06/10/20 Encounter Time: 16:16 Subjective: Ms. Conte was seen today in follow-up of NSTEMI. She notes some soreness in her right wrist, but otherwise ok. She denies chest pain or heart burn. - Objective Vital Signs & Weight: Vital Signs (12 hours) Temp Pulse Resp BP Pulse Ox 06/10/20 15:22 98.7 F 60 18 118/80 98 06/10/20 11:59 97.8 F 64 16 98 06/10/20 10:40 134/72 06/10/20 09:12 98 06/10/20 08:00 98.2 F 54 L 14 98 Weight Weight 144 lb Result Diagrams: 06/09/20 16:41 06/09/20 16:41 Hospitalist ROS - Medication Medications: Active Medications Generic Name Dose Route Start Last Admin Trade Name Freq PRN Reason Stop Dose Admin Acetaminophen 650 mg 06/10/20 14:58 06/10/20 15:18 Acetaminophen 325 Mg Tab PO 650 mg Q6H PRN Administration Headache/Fever or Pain Aspirin 81 mg 06/10/20 09:00 06/10/20 09:10 Aspirin 81 Mg Enteric Coated Tablet PO 81 mg DAILY GEE Administration Atorvastatin Calcium 80 mg 06/09/20 21:00 06/09/20 23:48 Atorvastatin Calcium 40 Mg Tab PO 80 mg HS GEE Administration Sodium Chloride 1,000 mls @ 100 mls/hr 06/10/20 08:30 06/10/20 09:09 Normal Saline 0.9% IV 1,000 mls .Q10H GEE Administration Metoprolol Succinate 25 mg 06/09/20 21:00 06/09/20 23:43 Metoprolol Succinate Xl 25 Mg Tab PO 25 mg 2100 GEE Administration Pantoprazole Sodium 40 mg 06/10/20 09:00 06/10/20 09:10 Pantoprazole 40 Mg Tab PO 40 mg DAILY GEE Administration Sodium Chloride 10 ml 06/10/20 09:00 06/10/20 09:10 Flush - Normal Saline 10 Ml Syringe IVF 10 ml Q12HR GEE Administration Tramadol HCl 50 mg 06/10/20 15:39 06/10/20 15:44 Tramadol Hcl 50 Mg Tab PO 50 mg TIDPRN PRN Administration Mild-Moderate Pain (1-5) - Exam Eye: PERRL, anicteric sclera Heart: RRR, no murmur, no gallops, no rubs, normal peripheral pulses Respiratory: CTAB, no wheezes, no rales, no ronchi, normal chest expansion, no tachypnea Gastrointestinal: soft, non-tender, non-distended, normal bowel sounds, no palpable masses, no hepatomegaly Extremities: no cyanosis, no edema Hosp A/P (1) NSTEMI (non-ST elevated myocardial infarction) Code(s): I21.4 - NON-ST ELEVATION (NSTEMI) MYOCARDIAL INFARCTION Status: Acute (2) Myeloma Code(s): C90.00 - MULTIPLE MYELOMA NOT HAVING ACHIEVED REMISSION Status: Chron ic (3) Hypertension Code(s): I10 - ESSENTIAL (PRIMARY) HYPERTENSION Status: Chronic (4) CAD (coronary artery disease) Code(s): I25.10 - ATHSCL HEART DISEASE OF [place] CORONARY ARTERY W/O ANG PCTRS Status: Chronic (5) Dyslipidemia Code(s): E78.5 - HYPERLIPIDEMIA, UNSPECIFIED Status: Chronic (6) Atrial fibrillation Code(s): I48.91 - UNSPECIFIED ATRIAL FIBRILLATION Status: Chronic (7) Chronic anticoagulation Code(s): Z79.01 - PROVIDER NETWORK ANALYST (CURRENT) USE OF ANTICOAGULANTS Status: Chronic - Plan * NSTEMI- continue aspirin, statin, and metoprolol * Cardiac cath results noted- she will need to have a cardiac STENT placed * Multiple Myeloma- stable- she is currently in remission. Revlimid is on hold for now * HTN-blood pressure is stable * AFIB on chronic anticoagulation- stable
[2020-06-10] MEDS: Docusate 100 MG CAP PO SCH (22:29)
[2020-06-10] MEDS: Atorvastatin Calcium 40 MG TAB PO SCH (22:29)
[2020-06-11] MEDS: Aspirin 81 mg Enteric Coated Tablet PO SCH (09:33)
[2020-06-11] MEDS: Docusate 100 MG CAP PO SCH ×2 (09:46→20:52)
[2020-06-11] MEDS ORDERED: Adenosine 6 MG/2 ML VIAL ONE (10:54)
[2020-06-11] MEDS ORDERED: Heparin 10,000 UNITS/ 10 ML VIAL ONE (10:54)
[2020-06-11] MEDS ORDERED: Nitroglycerin 100MG/250ML BOT 0 ML ONE (10:55)
[2020-06-11] MEDS ORDERED: Verapamil 5 MG/2 ML VIAL ONE (11:02)
[2020-06-11] MEDS: Sodium Chloride 0.9% 1,000 ML IV SCH (11:03)
[2020-06-11 12:00] LABS: #Basophils 0.1 thou/uL (0.0-0.2); #Eosinphils 0.1 thou/uL (0.0-0.7); #Lymphocytes 1.1 thou/uL (1.20-3.40); #Monocytes 0.7 thou/uL (0.11-0.59); %Basophils 1.7 % (0.0-1.0); %Eosinophils 2.7 % (0.0-10.0); %Lymphocytes 21.2 % (21.0-51.0); %Monocytes 14.6 % (0.0-10.0); %Neutrophils 59.8 % (42.0-75.0); Hemoglobin 12.6 g/dL (12.0-16.0); Mean Corpuscular HGB CONC 32.8 g/dL (32.0-36.0); Mean Corpuscular Hemoglobin 30.8 pg (27.0-31.0); Mean Corpuscular Volume 93.8 fL (78.0-98.0); Mean Platelet Volume 9.8 fL (7.4-10.4); Platelet Count 138 thou/uL (130-400); RBC Distribution Width 13.8 % (11.5-14.5); Red Blood Cell (RBC) Count 4.09 mill/uL (4.20-5.40)
[2020-06-11 12:25] LABS: Anion Gap 12 mmol/L (10-20); BUN (Urea Nitrogen) 10 mg/dL (9.8-20.1); Calc. Creatinine Clearance 67 mL/min (70-130); Calcium 7.2 mg/dL (7.8-10.44); Carbon Dioxide 20 mmol/L (23-31); Chloride 108 mmol/L (98-107); Estimated GFR-MDRD 73; Glucose 92 mg/dL (83-110); Sodium 136 mmol/L (136-145)
[2020-06-11] MEDS ORDERED: Midazolam HCl 2 mg/2 ml Vial ONE ×2 (12:32→13:42)
[2020-06-11] MEDS ORDERED: Fentanyl 100 MCG/2 ML VIAL ONE (12:32)
[2020-06-11] MEDS ORDERED: Atropine Sulfate 1 mg/10 ml Syringe ONE (12:57)
[2020-06-11] MEDS ORDERED: Ondansetron PF 4 MG/2 ML Vial ONE (12:57)
[2020-06-11] MEDS ORDERED: Clopidogrel Bisulfate 300 MG TAB ONE (12:57)
[2020-06-11] MEDS ORDERED: Sodium Chloride 0.9% 1,000 ML IV SCH (13:45)
[2020-06-11] MEDS ORDERED: Iopamidol 370 76% 100 ML VIAL ONE (14:19)
[2020-06-11] MEDS ORDERED: Iopamidol 370 76% 50 ML VIAL FS ONE (14:19)
[2020-06-11] MEDS ORDERED: hydrALAZINE 25 MG TAB PO PRN (15:53)
--- NOTE | 2020-06-11 16:19 | PDOC.HOSPP ---
- Subjective Encounter Date: 06/11/20 Encounter Time: 16:17 Subjective: Ms. Conte was seen today in follow-up of NSTEMI. She does not have any complaints today. She denies chest pain. The arm pain has improved. - Objective Vital Signs & Weight: Vital Signs (12 hours) Temp Pulse Pulse Pulse Resp BP BP 06/11/20 16:00 98.2 F 57 L 18 06/11/20 13:39 98.0 F 54 L 16 06/11/20 11:46 98.3 F 62 16 06/11/20 09:00 70 63 126/80 136/84 06/11/20 08:59 06/11/20 07:56 97.9 F 56 L 16 BP Pulse Ox 06/11/20 16:00 183/99 H 99 06/11/20 13:39 129/76 100 06/11/20 11:46 97 06/11/20 09:00 06/11/20 08:59 96 06/11/20 07:56 136/70 96 Weight Weight 144 lb I&O: 06/10/20 06/11/20 06/12/20 06:59 06:59 06:59 Intake Total 2888 Output Total 2 Balance 2886 Result Diagrams: 06/11/20 11:34 06/11/20 11:34 Hospitalist ROS - Medication Medications: Active Medications Generic Name Dose Route Start Last Admin Trade Name Freq PRN Reason Stop Dose Admin Acetaminophen 650 mg 06/10/20 14:58 06/10/20 15:18 Acetaminophen 325 Mg Tab PO 650 mg Q6H PRN Administration Headache/Fever or Pain Aspirin 81 mg 06/10/20 09:00 06/11/20 09:33 Aspirin 81 Mg Enteric Coated Tablet PO 81 mg DAILY GEE Administration Atorvastatin Calcium 80 mg 06/09/20 21:00 06/10/20 22:29 Atorvastatin Calcium 40 Mg Tab PO 80 mg HS GEE Administration Docusate Sodium 200 mg 06/10/20 21:00 06/11/20 09:46 Docusate 100 Mg Cap PO Not Given BID GEE Sodium Chloride 1,000 mls @ 100 mls/hr 06/10/20 08:30 06/11/20 11:03 Normal Saline 0.9% IV 1,000 mls .Q10H GEE Administration Sodium Chloride 1,000 mls @ 100 mls/hr 06/11/20 13:45 06/11/20 13:50 Normal Saline 0.9% IV 06/11/20 19:46 1,000 mls .Q10H GEE Administration Metoprolol Succinate 25 mg 06/09/20 21:00 06/10/20 22:29 Metoprolol Succinate Xl 25 Mg Tab PO 25 mg 2100 GEE Administration Pantoprazole Sodium 40 mg 06/10/20 09:00 06/11/20 09:33 Pantoprazole 40 Mg Tab PO 40 mg DAILY GEE Administration Sodium Chloride 10 ml 06/10/20 09:00 06/11/20 09:33 Flush - Normal Saline 10 Ml Syringe IVF 10 ml Q12HR GEE Administration Tramadol HCl 50 mg 06/10/20 15:39 06/10/20 22:32 Tramadol Hcl 50 Mg Tab PO 50 mg TIDPRN PRN Administration Mild-Moderate Pain (1-5) - Exam Eye: PERRL, anicteric sclera Heart: RRR, no murmur, no gallops, no rubs, normal peripheral pulses Respiratory: CTAB, no wheezes, no rales, no ronchi, normal chest expansion, no tachypnea Gastrointestinal: soft, non-tender, non-distended, normal bowel sounds, no palpable masses, no hepatomegaly Extremities: no cyanosis, no edema Hosp A/P (1) NSTEMI (non-ST elevated myocardial infarction) Code(s): I21.4 - NON-ST ELEVATION (NSTEMI) MYOCARDIAL INFARCTION Status: Acute (2) Myeloma Code(s): C90.00 - MULTIPLE MYELOMA NOT HAVING ACHIEVED REMISSION Status: Chronic (3) Hypertension Code(s): I10 - ESSENTIAL (PRIMARY) HYPERTENSION Status: Chronic (4) CAD (coronary artery disease) Code(s): I25.10 - ATHSCL HEART DISEASE OF [place] CORONARY ARTERY W/O ANG PCTRS Status: Chronic (5) Dyslipidemia Code(s): E78.5 - HYPERLIPIDEMIA, UNSPECIFIED Status: Chronic (6) Atrial fibrillation Code(s): I48.91 - UNSPECIFIED ATRIAL FIBRILLATION Status: Chronic (7) Chronic anticoagulation Code(s): Z79.01 - BLOCK SAWYER (CURRENT) USE OF ANTICOAGULANTS Status: Chronic - Plan * NSTEMI- continue aspirin, statin, and metoprolol * She is post STENT to the RCA * Multiple Myeloma- stable- she is currently in remission. Revlimid is on hold for now * HTN-blood pressure is elevated- her home medications have been re-started from after the procedure, and will place her on Hydralazine as needed * AFIB on chronic anticoagulation- stable
[2020-06-11] MEDS: Atorvastatin Calcium 40 MG TAB PO SCH (20:52)
[2020-06-12 05:30] LABS: ALT (SGPT) 15 U/L (8-55); AST (SGOT) 15 U/L (5-34); Albumin 3.2 g/dL (3.4-4.8); Alkaline Phosphatase 42 U/L (40-110); Anion Gap 12 mmol/L (10-20); BUN (Urea Nitrogen) 10 mg/dL (9.8-20.1); Bilirubin, Total 0.6 mg/dL (0.2-1.2); Calc. Creatinine Clearance 70 mL/min (70-130); Calcium 7.1 mg/dL (7.8-10.44); Carbon Dioxide 21 mmol/L (23-31); Chloride 108 mmol/L (98-107); Estimated GFR-MDRD 77; Globulin 2.1 g/dL (2.4-3.5); Glucose 98 mg/dL (83-110); Hemoglobin 11.2 g/dL (12.0-16.0); Mean Corpuscular HGB CONC 33.6 g/dL (32.0-36.0); Mean Corpuscular Hemoglobin 30.9 pg (27.0-31.0); Platelet Count 129 thou/uL (130-400); Potassium 3.6 mmol/L (3.5-5.1); Protein, Total 5.3 g/dL (6.0-8.3); RBC Distribution Width 13.5 % (11.5-14.5); Red Blood Cell (RBC) Count 3.62 mill/uL (4.20-5.40); Sodium 137 mmol/L (136-145); White Blood Cell (WBC) Count 4.4 thou/uL (4.8-10.8)
[2020-06-12 05:31] LABS: Band 5 % (5-11); Eosinophils 5 % (0-10); Lymphocytes 23 % (21-51); MDiff Complete? YES; Monocytes 16 % (0-10); Neutrophil 50 % (42-75); Platelet Morphology Comment Appears Adequate
--- NOTE | 2020-06-12 07:46 | CON ---
DATE OF CONSULTATION: 06/12/2020 SUBJECTIVE: Ms. Conte is doing well. No current complaints except for arm pain. She has ecchymosis from IV versus a radial approach several days ago. OBJECTIVE: VITAL SIGNS: Blood pressure 139/69, pulse 60, temperature 98.4. LUNGS: Clear to auscultation. HEART: Regular rate and rhythm. ABDOMEN: Soft, nontender, nondistended. EXTREMITIES: No edema. IMPRESSION: 1. Severe coronary artery disease. 2. Non-Q-wave myocardial infarction. 3. Status post stent placement. RECOMMENDATIONS: 1. Recommend aspirin, Plavix, and Eliquis for one month. 2. Discontinue aspirin after one month. 3. Warm compresses to right arm; there is no induration present, but bruising noted. 4. Continue atorvastatin in addition to metoprolol. 5. Okay from my standpoint to discharge home with 1 week follow up with Sherri Parnell. Job ID: [id number]
[2020-06-12] MEDS ORDERED: Apixaban 5 MG TAB PO SCH (09:00)
[2020-06-12] MEDS ORDERED: Clopidogrel Bisulfate 75 MG TAB PO SCH (09:00)
[2020-06-12] MEDS: Acetaminophen 325 MG TAB PO PRN (09:15)
[2020-06-12] MEDS: Aspirin 81 mg Enteric Coated Tablet PO SCH (09:15)
[2020-06-12] MEDS: Docusate 100 MG CAP PO SCH (09:15)
[2020-06-12 11:22] VITALS: BP 133/69; TEMP 98.4
--- NOTE | 2020-06-12 18:32 | PDOC.DS.DS ---
Provider - Provider Date of Admission: 06/09/20 18:40 Date of Discharge: 06/12/20 Admitting Provider: Yair Pascal MD Consultations: Cardiology, Oncology Primary Care Physician: Mario Bradley MD Course - Hospital Course Hospital Course: Ms. Garland is a 74-year-old female with a past medical history of multiple myeloma status post bone marrow transplant. She also has a history of coronary artery disease and has had 3 cardiac stents. She has atrial fibrillation as well as hypertension and hyperlipidemia. She presented to the emergency room with a complaint of chest pain. She was found to have an elevated troponin. She had a CT angiogram of the chest which was negative for pulmonary embolism. Cardiology was consulted and she underwent cardiac catheterization. She had the placement of a bare-metal stent to the RCA. She was placed on Plavix and aspirin. The Plavix will be taken for 1 month and this can be discontinued. However she will need to remain on Eliquis for atrial fibrillation and stroke prevention. She has a history of multiple myeloma and oncology was consulted. She is taking Revlimid and this was discontinued until she follows up with oncology in the outpatient setting. Pertinent Studies: Cardiac Catheterization STENT to RCA- Bare metal CTA of chest - Labs Lab Results: 06/12/20 04:42 06/12/20 04:42 Abnormal Lab Results - Last 48 hrs 06/11/20 11:34: Chloride 108 H, Carbon Dioxide 20 L, Calcium 7.2 L 06/11/20 11:34: RBC 4.09 L, Monocytes % 14.6 H, Basophils % 1.7 H, Lymphocytes # 1.1 L, Monocytes # 0.7 H 06/12/20 04:42: Chloride 108 H, Carbon Dioxide 21 L, Calcium 7.1 L, Serum Total Protein 5.3 L, Albumin 3.2 L, Globulin 2.1 L 06/12/20 04:42: WBC 4.4 L, RBC 3.62 L, Hgb 11.2 L, Hct 33.3 L, Plt Count 129 L, Monocytes % (Manual) 16 H - Physical Exam Vitals: Vital Signs (12 hours) Temp Pulse Resp BP BP Pulse Ox 06/12/20 11:21 98.4 F 62 14 133/69 97 06/12/20 07:35 98.9 F 62 16 151/74 H 97 06/12/20 07:33 98.9 F 62 16 151/74 H 97 06/12/20 07:30 97 Weight Weight 144 lb Physical Exam: The patient was seen and examined on the day of discharge. Problem - Problem (1) NSTEMI (non-ST elevated myocardial infarction) Code(s): I21.4 - NON-ST ELEVATION (NSTEMI) MYOCARDIAL INFARCTION Status: Acute (2) Myeloma Code(s): C90.00 - MULTIPLE MYELOMA NOT HAVING ACHIEVED REMISSION Status: Chronic (3) Hypertension Code(s): I10 - ESSENTIAL (PRIMARY) HYPERTENSION Status: Chronic (4) CAD (coronary artery disease) Code(s): I25.10 - ATHSCL HEART DISEASE OF [place] CORONARY ARTERY W/O ANG PCTRS Status: Chronic (5) Dyslipidemia Code(s): E78.5 - HYPERLIPIDEMIA, UNSPECIFIED Status: Chronic (6) Atrial fibrillation Code(s): I48.91 - UNSPECIFIED ATRIAL FIBRILLATION Status: Chronic (7) Chronic anticoagulation Code(s): Z79.01 - HVAC R INSTRUCTOR (CURRENT) USE OF ANTICOAGULANTS Status: Chronic Plan - Discharge Medications Prescriptions: Clopidogrel Bisulfate [Plavix] 75 mg PO DAILY #30 tab Home Medications: Medication Instructions Recorded Confirmed Type Atorvastatin Calcium 80 mg PO HS 09/27/18 06/10/20 History Calcium Carbonate/Vitamin D3 2 tablet PO DAILY 09/27/18 06/10/20 History [Calcium 600 + Vitamin D] Ezetimibe [Zetia] 10 mg PO HS 09/27/18 06/10/20 History Multivitamin [Multivitamins] 1 cap PO DAILY 09/27/18 06/10/20 History Omeprazole 20 mg PO DAILY 09/27/18 06/10/20 History ALPRAZolam 0.25 mg PO TID PRN 09/28/18 06/10/20 History traMADol HCl [Tramadol HCl] 50 mg PO TID PRN 09/28/18 06/10/20 History Apixaban [Eliquis] 5 mg PO BID 02/13/20 06/10/20 History Aspirin [Ecotrin Low Strength] 1 tab PO DAILY 02/13/20 06/10/20 History Lenalidomide [Revlimid] 5 mg PO DAILY 02/13/20 06/10/20 History Metoprolol Succinate [Toprol XL] 25 mg PO HS 02/13/20 06/10/20 History Docusate [Colace] 200 mg PO BID 06/10/20 06/10/20 History Clopidogrel Bisulfate [Plavix] 75 mg PO DAILY #30 tab 06/12/20 Rx Allergies: Sulfa (Sulfonamide Antibiotics) Allergy (Verified 06/10/20 02:47) Hives - Discharge Instructions Activity:: Activity as Tolerated Nourishment:: Heart Healthy Diet - Follow up Plan Referrals: Cardiac Rehab -[place] [Outside] - 7 Days (Your doctor has ordered outpatient cardiac rehab for you to begin within 1-2 weeks after you go home from the hospital. The location nearest to you is the [facility]. The front office in [place] will call you in 3-5 days to get you scheduled for your evaluation. If you do not receive a call, please reach out to them at [phone] and request an appointment. Should you have any trouble or need assistance, please call the cardiac rehab main line in [place] at [phone]) Mario Bradley MD [Primary Care Provider] - 7 Days (Patient will set up her own follow appts per patient) Tyler Latham MD [Active] - 2-3 Weeks (Pt will call herself for follow up appt) Disposition: HOME Quality - Care Measures CORE MEASURES:: AMI - Stroke/TIA Did you prescribe antithrombotic therapy?: Yes Did you prescribe anticoagulant for A Fib/Flutter?: Yes Did you prescribe a statin medication?: Yes
--- NOTE | 2020-06-16 06:55 | EKG ---
Test Reason : POST CATH W 1 STENT Blood Pressure : / mmHG Vent. Rate : 054 BPM Atrial Rate : 054 BPM P-R Int : 138 ms QRS Dur : 088 ms QT Int : 478 ms P-R-T Axes : 060 023 -04 degrees QTc Int : 453 ms Sinus bradycardia Possible Inferior infarct (cited on or before 09-JUN-2020) Abnormal ECG When compared with ECG of 09-JUN-2020 16:29, (Unconfirmed) Premature ventricular complexes are no longer Present Confirmed by MARIA TERESA WRIGHT MD ([id number]) on 06/16/2020 6:54:49 AM Referred By: KYLE Confirmed By:MARIA TERESA WRIGHT MD
--- NOTE | 2020-06-16 06:56 | EKG ---
Test Reason : Blood Pressure : / mmHG Vent. Rate : 061 BPM Atrial Rate : 061 BPM P-R Int : 146 ms QRS Dur : 088 ms QT Int : 448 ms P-R-T Axes : 053 018 -11 degrees QTc Int : 450 ms Normal sinus rhythm Inferior infarct (cited on or before 09-JUN-2020) Abnormal ECG When compared with ECG of 11-JUN-2020 13:59, (Unconfirmed) No significant change was found Confirmed by MARIA TERESA WRIGHT MD ([id number]) on 06/16/2020 6:56:10 AM Referred By: KYLE Confirmed By:MARIA TERESA WRIGHT MD
== END 2020-06-12 12:04 | disposition home or self-care (01) | DRG 249 ==
LOC: ERS 15:02 → ERHOLD 18:40 → 2SE 22:13
PROVIDERS: ADMIT Student in an Organized Health Care Education/Training Program; ATTEND Student in an Organized Health Care Education/Training Program
PROC: 02703DZ Dilation of Coronary Artery, One Artery with Intraluminal Device, Percutaneous Approach (ICD-10-PCS; principal; 2020-06-10)
PROC: 4A023N7 Measurement of Cardiac Sampling and Pressure, Left Heart, Percutaneous Approach (ICD-10-PCS; 2020-06-10)
PROC: B2111ZZ Fluoroscopy of Multiple Coronary Arteries using Low Osmolar Contrast (ICD-10-PCS; 2020-06-10)
PROC: B2151ZZ Fluoroscopy of Left Heart using Low Osmolar Contrast (ICD-10-PCS; 2020-06-10)
DX: I21.4 Non-ST elevation (NSTEMI) myocardial infarction (principal); Z94.81 Bone marrow transplant status; C90.00 Multiple myeloma not having achieved remission; Z20.828 Contact with and (suspected) exposure to other viral communicable diseases; I48.0 Paroxysmal atrial fibrillation; I10 Essential (primary) hypertension; E78.5 Hyperlipidemia, unspecified; E78.00 Pure hypercholesterolemia, unspecified; M19.90 Unspecified osteoarthritis, unspecified site; K21.9 Gastro-esophageal reflux disease without esophagitis; I25.10 Atherosclerotic heart disease of native coronary artery without angina pectoris; Z95.5 Presence of coronary angioplasty implant and graft; Z88.2 Allergy status to sulfonamides; Z79.899 Other long term (current) drug therapy
CPT/HCPCS: 36415; 71045; 71275; 76942; 80048; 80053; 80061; 82550; 82553; 83735; 83880; 84443; 84484; 85025; 85347; 92928; 93005; 93010; 93306; 93454; 93458; 93798; 99152; 99153; C1760; C1874; C9600; J0153; J0461; J1644; J2250; J2405; J3010; Q9967; U0002

== ENCOUNTER 2020-06-16 12:50 | Emergency (ER) | payer MEDICARE, BC ==
[2020-06-16 13:33] LABS: #Basophils 0.1 thou/uL (0.0-0.2); #Eosinphils 0.2 thou/uL (0.0-0.7); #Monocytes 0.5 thou/uL (0.11-0.59); #Neutrophils 2.3 thou/uL (1.40-6.50); %Basophils 1.9 % (0.0-1.0); %Eosinophils 5.6 % (0.0-10.0); %Lymphocytes 24.4 % (21.0-51.0); %Neutrophils 55.1 % (42.0-75.0); Hemoglobin 11.9 g/dL (12.0-16.0); Mean Corpuscular HGB CONC 33.6 g/dL (32.0-36.0); Mean Corpuscular Hemoglobin 30.7 pg (27.0-31.0); Mean Corpuscular Volume 91.5 fL (78.0-98.0); Mean Platelet Volume 9.7 fL (7.4-10.4); Platelet Count 178 thou/uL (130-400); RBC Distribution Width 13.6 % (11.5-14.5); Red Blood Cell (RBC) Count 3.87 mill/uL (4.20-5.40); White Blood Cell (WBC) Count 4.2 thou/uL (4.8-10.8)
--- NOTE | 2020-06-16 13:45 | RAD ---
Portable chest: HISTORY: Chest pain COMPARISON: 06/09/2020 FINDINGS: Lung tim are clear. Heart and mediastinum appear unremarkable. Vascularity is normal. M ild apical pleural thickening is stable. Visualized osseous structures unremarkable. IMPRESSION: No acute finding
[2020-06-16 13:56] LABS: ALT (SGPT) 21 U/L (8-55); AST (SGOT) 21 U/L (5-34); Albumin 3.8 g/dL (3.4-4.8); Alkaline Phosphatase 46 U/L (40-110); Anion Gap 14 mmol/L (10-20); BUN (Urea Nitrogen) 14 mg/dL (9.8-20.1); Bilirubin, Total 0.7 mg/dL (0.2-1.2); Calc. Creatinine Clearance 0 mL/min (70-130); Calcium 8.6 mg/dL (7.8-10.44); Carbon Dioxide 23 mmol/L (23-31); Chloride 108 mmol/L (98-107); Estimated GFR-MDRD 58; Globulin 2.6 g/dL (2.4-3.5); Glucose 131 mg/dL (83-110); Potassium 3.8 mmol/L (3.5-5.1); Protein, Total 6.4 g/dL (6.0-8.3); Sodium 141 mmol/L (136-145)
[2020-06-16 14:10] LABS: CKMB 2.4 ng/mL (0-6.6)
[2020-06-16] MEDS ORDERED: Aspirin Chewable 81 MG TAB ONE (14:21)
== END 2020-06-16 17:22 | disposition home or self-care (01) ==
LOC: ERS 12:50
DX: R07.89 Other chest pain (principal); I25.10 Atherosclerotic heart disease of native coronary artery without angina pectoris; I25.2 Old myocardial infarction; I10 Essential (primary) hypertension; Z79.82 Long term (current) use of aspirin; Z79.899 Other long term (current) drug therapy; R79.89 Other specified abnormal findings of blood chemistry
CPT/HCPCS: 71045; 80053; 82553; 84484; 85025; 93005

== ENCOUNTER 2020-06-30 08:58 | Outpatient (CLI) | payer MEDICARE, BC ==
--- NOTE | 2020-06-30 16:36 | PET ---
Nuclear medicine FDG PET/CT: (Positron emission tomography and computed tomography) DATE: 06/30/2020 HISTORY: 74-year-old female with C90.00 multiple myeloma, not having achieved remission. Evaluate response to treatment. C 79.51 COMPARISON: 12/05/2019 TECHNIQUE: IV injection of F-18 fluorodeoxyglucose (FDG) dose: 12.6 mCi. PET scan and attenuation correction CT performed from skull base to proximal thighs. FINDINGS: SUV (standard uptake values) numbers given are maximum SUVs. QCLR used. Non hypermetabolic small groundglass left perihilar upper lobe, ill-defined pulmonary nodular density is is slightly smaller and more faint now. Signs of bariatric surgery in the abdominal cavity. 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 No convincing evidence of soft tissue metastatic disease within the neck, thoracic cavity, abdominal cavity, or pelvic cavity. Again noted are the multiple osteolytic non hypermetabolic skeletal lesions, consistent with multiple myeloma. For example, an approximately 2 x 2.5 cm osteolytic lesion occupying the majority of the T9 vertebral body volume, with SUV 1.6: Not hypermetabolic. Sclerosis involving old compression fracture of L1. No interval change overall.. IMPRESSION: 1) multiple skeletal osteolytic lesions consistent with multiple myeloma. 2) no FDG avid lesions 3) right adnexal dermoid tumor. 4) no interval change.
== END 2020-06-30 08:59 | disposition home or self-care (01) ==
LOC: PET 08:58
PROVIDERS: ATTEND Internal Medicine Hematology & Oncology
DX: C90.00 Multiple myeloma not having achieved remission (principal); C79.51 Secondary malignant neoplasm of bone; M89.9 Disorder of bone, unspecified; D28.7 Benign neoplasm of other specified female genital organs
CPT/HCPCS: 78815; A9552

== ENCOUNTER 2020-07-09 07:51 | Day surgery (SDC) | payer MEDICARE, BC ==
[2020-07-08 08:52] VITALS: BMI 25.0
[2020-07-09 08:33] LABS: INR-International Normal Ratio 0.9; PTT 25.1 sec (22.9-36.1); Prothrombin Time 12.6 sec (12.0-14.7)
[2020-07-09] MEDS ORDERED: FLU VACC QS2020-21(65YR UP)/PF 240 MCG/0.7 ML SYRINGE IM ONE (09:30)
[2020-07-09 09:46] VITALS: BP 122/76; TEMP 96.7
[2020-07-09] MEDS ORDERED: Sodium Bicarbonate 2.5 MEQ/5 ML VIAL ONE (09:47)
[2020-07-09] MEDS ORDERED: Fentanyl 100 MCG/2 ML VIAL ONE (09:47)
[2020-07-09] MEDS ORDERED: Midazolam HCl 2 mg/2 ml Vial ONE (09:47)
--- NOTE | 2020-07-09 11:06 | CT ---
CT GUIDED RIGHT ILIAC BONE MARROW ASPIRATION AND BIOPSY: CLINICAL HISTORY: Multiple myeloma. PROCEDURE: The procedure including the risks and complications were explained to the patient, and informed conse nt was obtained. The patient was placed on the CT scan table in the prone position. Noncontrasted CT images were obtained through the pelvis. An area was marked overlying the RIGHT jefe c bone, and the area was meticulously prepped and draped in usual sterile fashion. The skin and subcutaneous tissues were infiltrated with buffered 1% lidocaine for local anesthesia. After a small skin incision was made, an 11-gauge needle was advanced and positioning was confirmed w ith axial CT images. Approximately 9 milliliters of bone marrow aspirate was obtained. The needle was then further advanced, and a bone marrow biopsy was performed. The needle was removed, and hemost asis was achieved with direct pressure. The patient tolerated the procedure well and without immediate complication. The patient was transported to radiology nurses holding area for further ethel toring prior to discharge. IMPRESSION: 1. Technically successful CT-guided percutaneous bone marrow aspiration and biopsy. 2. As noted on PET/CT scan exam on 06/30/2020, there is partial visualization of a right adnexal dermo id in addition to 1.8 cm low-density lesion associated with the left ovary probably related to a left ovarian cyst. 3. Postoperative changes of loops of bowel. Pathology results are pending.
--- NOTE | 2020-07-09 15:38 | CT ---
CT GUIDED RIGHT ILIAC BONE MARROW ASPIRATION AND BIOPSY: CLINICAL HISTORY: Multiple myeloma. PROCEDURE: The procedure including the risks and complications were explained to the patient, and informed conse nt was obtained. The patient was placed on the CT scan table in the prone position. Noncontrasted CT images were obtained through the pelvis. An area was marked overlying the RIGHT jefe c bone, and the area was meticulously prepped and draped in usual sterile fashion. The skin and subcutaneous tissues were infiltrated with buffered 1% lidocaine for local anesthesia. After a small skin incision was made, an 11-gauge needle was advanced and positioning was confirmed w ith axial CT images. Approximately 9 milliliters of bone marrow aspirate was obtained. The needle was then further advanced, and a bone marrow biopsy was performed. The needle was removed, and hemost asis was achieved with direct pressure. The patient tolerated the procedure well and without immediate complication. The patient was transported to radiology nurses holding area for further ethel toring prior to discharge. IMPRESSION: 1. Technically successful CT-guided percutaneous bone marrow aspiration and biopsy. 2. As noted on PET/CT scan exam on 06/30/2020, there is partial visualization of a right adnexal dermo id in addition to 1.8 cm low-density lesion associated with the left ovary probably related to a left ovarian cyst. 3. Postoperative changes of loops of bowel. Pathology results are pending. Transcribed Date/Time: 07/09/2020 3:38 PM
== END 2020-07-09 11:30 | disposition home or self-care (01) ==
LOC: CT 07:51
PROVIDERS: ATTEND Internal Medicine Hematology & Oncology
PROC: 07DR3ZX Extraction of Iliac Bone Marrow, Percutaneous Approach, Diagnostic (ICD-10-PCS; principal; 2020-07-09)
DX: C90.00 Multiple myeloma not having achieved remission (principal); C79.51 Secondary malignant neoplasm of bone; I10 Essential (primary) hypertension; I25.10 Atherosclerotic heart disease of native coronary artery without angina pectoris; I48.91 Unspecified atrial fibrillation; E78.5 Hyperlipidemia, unspecified; K21.9 Gastro-esophageal reflux disease without esophagitis; M19.90 Unspecified osteoarthritis, unspecified site; Z79.01 Long term (current) use of anticoagulants; Z79.02 Long term (current) use of antithrombotics/antiplatelets; Z79.899 Other long term (current) drug therapy; Z87.891 Personal history of nicotine dependence; Z88.2 Allergy status to sulfonamides; Z95.5 Presence of coronary angioplasty implant and graft
CPT/HCPCS: 20225; 77002; 85610; 85730; 88184; 88185; 88237; 88264; 88280 ×2; 90662; G0008; 85097; 88305; 88311; 88313; 88341; 88342; 88365; 90471; J2250; J3010

== ENCOUNTER 2020-11-06 16:16 | Outpatient (CLI) | payer MEDICARE, BC ==
[2020-11-07 05:00] LABS: SARS-CoV-2 PCR by NAA DETECTED (NotDetected)
== END 2020-11-06 16:17 | disposition home or self-care (01) ==
LOC: LABBT 16:16
PROVIDERS: ATTEND Internal Medicine Cardiovascular Disease
DX: U07.1 COVID-19 (principal); Z01.812 Encounter for preprocedural laboratory examination
CPT/HCPCS: 80053; 82553; 84484; 85025; U0003; U0005; 36415; 87635

== ENCOUNTER 2020-11-09 05:56 | Inpatient (IN) | payer MEDICARE, BC ==
[2020-11-09] MEDS ORDERED: Lidocaine 1% (PF) 30 ML VIAL ONE ×2 (06:23→06:30)
[2020-11-09] MEDS ORDERED: Midazolam HCl 2 mg/2 ml Vial ONE (08:02)
[2020-11-09] MEDS ORDERED: Fentanyl 100 MCG/2 ML VIAL ONE ×2 (08:03→13:18)
[2020-11-09] MEDS ORDERED: Nitroglycerin 0.4 MG TAB (25 Tab Bottle) SL PRN (08:59)
[2020-11-09] MEDS ORDERED: Sodium Chloride 0.9% 200 ML IV PRN (08:59)
[2020-11-09] MEDS ORDERED: Acetaminophen/Codeine 30-300mg Tablet PO PRN ×2 (08:59)
[2020-11-09] MEDS ORDERED: traMADol HCl 50 MG TAB PO PRN (09:31)
[2020-11-09] MEDS ORDERED: Docusate 100 MG CAP PO PRN (09:34)
[2020-11-09] MEDS ORDERED: ALPRAZolam 0.25 MG TAB PO PRN (09:36)
[2020-11-09] MEDS ORDERED: hydrALAZINE 20 MG/ML VIAL ONE (10:13)
[2020-11-09] MEDS ORDERED: Diazepam 5 MG TAB PO PRN (10:43)
[2020-11-09] MEDS ORDERED: Communication Order-Pharmacy FS SCH (10:43)
[2020-11-09] MEDS ORDERED: hydrALAZINE 20 MG/ML VIAL SLOW IVP SCH (11:00)
[2020-11-09] MEDS ORDERED: Iopamidol 370 76% 100 ML VIAL ONE (11:23)
[2020-11-09] MEDS ORDERED: Acetaminophen/Codeine 30-300mg Tablet ONE (12:42)
[2020-11-09] MEDS ORDERED: Nitroglycerin 0.4 MG TAB (25 Tab Bottle) ONE (12:55)
[2020-11-09] MEDS ORDERED: Nitroglycerin 50 MG/250 ML BOT 250 ML ONE (13:25)
[2020-11-09] MEDS ORDERED: Ondansetron PF 4 MG/2 ML Vial ONE (13:47)
[2020-11-09] MEDS ORDERED: Nitroglycerin 50 MG/250 ML BOT 250 ML IVPB SCH (14:45)
[2020-11-09] MEDS ORDERED: Fentanyl 100 MCG/2 ML VIAL SLOW IVP SCH (14:45)
[2020-11-09] MEDS ORDERED: Ondansetron PF 4 MG/2 ML Vial IVP SCH (14:45)
[2020-11-09] MEDS: Sodium Chloride 0.9% 1,000 ML IV SCH ×2 (16:55→18:08)
[2020-11-09] MEDS: Atorvastatin Calcium 40 MG TAB PO SCH (21:01)
[2020-11-09] MEDS: Ezetimibe 10 MG TAB PO SCH (21:01)
[2020-11-10] MEDS: Sodium Chloride 0.9% 1,000 ML IV SCH ×2 (00:28→10:02)
[2020-11-10] MEDS ORDERED: Midazolam HCl 2 mg/2 ml Vial ONE (06:34)
[2020-11-10] MEDS ORDERED: Midazolam HCl 5 mg/5 ml Vial ONE (06:34)
[2020-11-10] MEDS ORDERED: Albumin 5% 500 ML ONE (06:34)
[2020-11-10] MEDS ORDERED: Dexmedetomidine 200 MCG/2 ML VIAL ONE (06:34)
[2020-11-10] MEDS ORDERED: Fentanyl 100 MCG/2 ML VIAL ONE (06:34)
[2020-11-10] MEDS ORDERED: Vecuronium 10 MG VIAL ONE ×2 (06:34→07:46)
[2020-11-10] MEDS ORDERED: Dexamethasone 4 mg/ml Vial ONE (06:35)
[2020-11-10] MEDS ORDERED: Bupivacaine PF 0.5% 30 ML VIAL ONE (06:35)
[2020-11-10] MEDS ORDERED: EPINEPHrine 1 MG/ML AMP ONE (06:35)
[2020-11-10] MEDS ORDERED: Lidocaine 1% (PF) 30 ML VIAL ONE (07:30)
[2020-11-10] MEDS ORDERED: CEFAZOLIN 2 GM in Premix Bag 1 BAG IVPB SCH (07:30)
[2020-11-10] MEDS ORDERED: Magnesium Sulfate 1 GM/2 ML VIAL ONE (07:46)
[2020-11-10] MEDS ORDERED: Ondansetron PF 4 MG/2 ML Vial ONE (07:46)
[2020-11-10] MEDS ORDERED: Heparin 5,000 UNITS/ML VIAL ONE (07:46)
[2020-11-10] MEDS ORDERED: Glycopyrrolate 0.2 MG/ML 5 ML SYRINGE ONE (07:46)
[2020-11-10] MEDS ORDERED: Nitroglycerin 50 MG/250 ML BOT ONE (07:46)
[2020-11-10] MEDS ORDERED: Cardioplegic Soln 1,000 ML BAG ONE (07:46)
[2020-11-10] MEDS ORDERED: Ketorolac Tromethamine 30 MG/ML VIAL ONE (07:46)
[2020-11-10] MEDS ORDERED: Aminocaproic Acid 5 GM/20 ML VIAL ONE (07:46)
[2020-11-10] MEDS ORDERED: Calcium Chloride 1 GM/10 ML Abboject SYRINGE ONE (07:46)
[2020-11-10] MEDS ORDERED: Mannitol 12.5 GM/50 ML ONE (07:46)
[2020-11-10] MEDS ORDERED: ePHEDrine Sulfate 50 MG/10 ML VIAL ONE (07:46)
[2020-11-10] MEDS ORDERED: PHENYLEPHRINE-NS 100 MCG/ML 10 ML SYRINGE ONE (07:46)
[2020-11-10] MEDS ORDERED: Thrombin 5000 UNITS/5 ML VIAL ONE (07:46)
[2020-11-10] MEDS ORDERED: Potassium Chloride 60 MEQ/30 ML VIAL ONE (07:46)
[2020-11-10] MEDS ORDERED: Lidocaine 1% PF 5 ML VIAL ONE ×2 (07:46)
[2020-11-10] MEDS ORDERED: Dexamethasone 20 MG/5 ML VIAL ONE (07:46)
[2020-11-10] MEDS ORDERED: Lidocaine 2% PF 100 mg/5 ml Syringe ONE (07:46)
[2020-11-10] MEDS ORDERED: Heparin 30,000 units/30 ml VIAL ONE (07:46)
[2020-11-10] MEDS ORDERED: Sodium Bicarb 50 MEQ/50 ML Abboject 8.4% SYRINGE ONE (07:46)
[2020-11-10] MEDS ORDERED: Protamine Sulfate 250 MG/25 ML VIAL ONE (07:46)
[2020-11-10] MEDS ORDERED: Papaverine 60 MG/2 ML VIAL ONE (07:46)
[2020-11-10] MEDS ORDERED: Calcium Carbonate 600 MG + Vit D TAB PO SCH (09:00)
[2020-11-10] MEDS ORDERED: REVLIMID 5 MG PO SCH (09:00)
[2020-11-10] MEDS: Cholecalciferol 1,000 UNITS (25 MCG) TAB PO SCH (10:02)
[2020-11-10] MEDS: Multivit, Therapeutic 1 TAB PO SCH (10:02)
[2020-11-10] MEDS ORDERED: Bisacodyl 5 MG TAB PO PRN (10:59)
[2020-11-10] MEDS ORDERED: Morphine 2 MG/ML VIAL SLOW IVP PRN (10:59)
[2020-11-10] MEDS ORDERED: Hetastarch 6% 500 ML 500 ML IVPB PRN (10:59)
[2020-11-10] MEDS ORDERED: Potassium Chloride 20 MEQ/100 ML PREMIX BAG IVPB PRN (10:59)
[2020-11-10] MEDS ORDERED: Guaifenesin DM 100-10/5 ML UDCUP PO PRN (10:59)
[2020-11-10] MEDS ORDERED: Acetaminophen 325 MG TAB PO PRN (10:59)
[2020-11-10] MEDS ORDERED: Bisacodyl 10 MG SUPP PR PRN (10:59)
[2020-11-10] MEDS ORDERED: Ondansetron PF 4 MG/2 ML Vial IVP PRN (10:59)
[2020-11-10] MEDS ORDERED: Magnesium 2 GM/50 ML 1 GM in Premix Bag 1 BAG IVPB SCH (10:59)
[2020-11-10] MEDS ORDERED: Phenylephrine 40 MG in Sodium Chloride 0.9% 250 ML 250 ML IVPB PRN (10:59)
[2020-11-10] MEDS ORDERED: niCARdipine 25 MG in Sodium Chloride 0.9% 250 ML 250 ML IVPB PRN (10:59)
[2020-11-10] MEDS ORDERED: Mag-Al 1200 mg/1200 mg/30 ML UDCUP PO PRN (10:59)
[2020-11-10] MEDS ORDERED: Nitroglycerin 50 MG/250 ML BOT 250 ML IVPB PRN (10:59)
[2020-11-10] MEDS ORDERED: Fentanyl 100 MCG/2 ML VIAL SLOW IVP PRN ×2 (10:59)
[2020-11-10] MEDS ORDERED: Promethazine HCl 25 MG/ML VIAL IM PRN (10:59)
[2020-11-10] MEDS: D5 1/2 NS w/20 mEq KCL 1,000 ML IV SCH (11:21)
[2020-11-10 11:27] LABS: INR-International Normal Ratio 1.4; PTT 34.1 sec (22.9-36.1); Prothrombin Time 17.6 sec (12.0-14.7)
[2020-11-10 11:30] LABS: #Eosinphils 0.1 thou/uL (0.0-0.7); #Lymphocytes 1.5 thou/uL (1.20-3.40); #Monocytes 0.6 thou/uL (0.11-0.59); #Neutrophils 3.6 thou/uL (1.40-6.50); %Basophils 0.4 % (0.0-1.0); %Eosinophils 2.6 % (0.0-10.0); %Lymphocytes 24.9 % (21.0-51.0); %Monocytes 9.7 % (0.0-10.0); %Neutrophils 62.4 % (42.0-75.0); Hemoglobin 10.5 g/dL (12.0-16.0); Mean Corpuscular HGB CONC 32.2 g/dL (32.0-36.0); Mean Corpuscular Hemoglobin 30.4 pg (27.0-31.0); Mean Corpuscular Volume 94.3 fL (78.0-98.0); Mean Platelet Volume 10.3 fL (7.4-10.4); Platelet Count 101 thou/uL (130-400); RBC Distribution Width 13.5 % (11.5-14.5); Red Blood Cell (RBC) Count 3.46 mill/uL (4.20-5.40); White Blood Cell (WBC) Count 5.8 thou/uL (4.8-10.8)
[2020-11-10 11:37] LABS: Anion Gap 14 mmol/L (10-20); BUN (Urea Nitrogen) 11 mg/dL (9.8-20.1); Calc. Creatinine Clearance 71 mL/min (70-130); Calcium 6.6 mg/dL (7.8-10.44); Carbon Dioxide 17 mmol/L (23-31); Chloride 111 mmol/L (98-107); Glucose 176 mg/dL (83-110); Potassium 3.7 mmol/L (3.5-5.1); Sodium 138 mmol/L (136-145)
[2020-11-10] MEDS: Ketorolac Tromethamine 30 MG/ML VIAL IVP SCH ×3 (12:13→23:37)
[2020-11-10] MEDS: CEFAZOLIN 2 GM in Premix Bag 1 BAG IVPB SCH ×2 (15:05→23:37)
[2020-11-10] MEDS ORDERED: Norepinephrine 8 MG/0.9% NS 250 ML IVPB SCH (15:45)
[2020-11-10] MEDS: traMADol HCl 50 MG TAB PO PRN ×2 (16:25→22:40)
[2020-11-10 16:38] LABS: Hemoglobin 10.2 g/dL (12.0-16.0)
[2020-11-10 16:57] LABS: Potassium 3.6 mmol/L (3.5-5.1)
[2020-11-10] MEDS ORDERED: Diltiazem HCl 125 MG, Admixture Fee 1 EACH in Sodium Chloride 0.9% 100 ML IVPB SCH (17:45)
[2020-11-10] MEDS: Digoxin 0.5 MG/2 ML AMP SLOW IVP SCH ×2 (20:36→22:21)
[2020-11-10] MEDS: Insulin Regular 300 UNITS/3 ML VIAL SC PRN (21:08)
[2020-11-10] MEDS: Ezetimibe 10 MG TAB PO SCH (21:40)
[2020-11-10] MEDS: Atorvastatin Calcium 40 MG TAB PO SCH (21:40)
[2020-11-10] MEDS: Famotidine/PF 20 mg/2ml Vial SLOW IVP SCH (21:41)
[2020-11-10] MEDS ORDERED: Amiodarone 150 MG, Admixture Fee 1 EACH in Dextrose 5% in Water 100 ML IVPB SCH (23:30)
[2020-11-10] MEDS ORDERED: Amiodarone 450 MG, Admixture Fee 1 EACH in Dextrose 5% in Water 250 ML IVPB SCH (23:45)
[2020-11-11] MEDS: Insulin Regular 300 UNITS/3 ML VIAL SC PRN ×4 (00:11→17:32)
[2020-11-11 04:10] LABS: Hemoglobin 8.7 g/dL (12.0-16.0); Mean Corpuscular HGB CONC 33.6 g/dL (32.0-36.0); Mean Corpuscular Hemoglobin 31.5 pg (27.0-31.0); Mean Corpuscular Volume 93.7 fL (78.0-98.0); Mean Platelet Volume 10.3 fL (7.4-10.4); Platelet Count 94 thou/uL (130-400); RBC Distribution Width 13.4 % (11.5-14.5); Red Blood Cell (RBC) Count 2.77 mill/uL (4.20-5.40); White Blood Cell (WBC) Count 2.2 thou/uL (4.8-10.8)
[2020-11-11 04:25] LABS: Anion Gap 14 mmol/L (10-20); BUN (Urea Nitrogen) 12 mg/dL (9.8-20.1); Calc. Creatinine Clearance 61 mL/min (70-130); Calcium 6.8 mg/dL (7.8-10.44); Carbon Dioxide 18 mmol/L (23-31); Chloride 105 mmol/L (98-107); Glucose 164 mg/dL (83-110); Potassium 3.5 mmol/L (3.5-5.1); Sodium 133 mmol/L (136-145)
[2020-11-11 04:46] LABS: Band 31 % (5-11); Lymphocytes 11 % (21-51); MDiff Complete? YES; Monocytes 13 % (0-10); Neutrophil 45 % (42-75); Platelet Morphology Comment Appears Decreased
[2020-11-11] MEDS: Ketorolac Tromethamine 30 MG/ML VIAL IVP SCH ×5 (05:57→23:41)
[2020-11-11] MEDS: CEFAZOLIN 2 GM in Premix Bag 1 BAG IVPB SCH (07:45)
[2020-11-11] MEDS: Famotidine/PF 20 mg/2ml Vial SLOW IVP SCH (08:13)
[2020-11-11] MEDS: Multivit, Therapeutic 1 TAB PO SCH (08:13)
[2020-11-11] MEDS: Aspirin Chewable 81 MG TAB PO SCH (08:13)
[2020-11-11] MEDS: Cholecalciferol 1,000 UNITS (25 MCG) TAB PO SCH (08:13)
[2020-11-11] MEDS: traMADol HCl 50 MG TAB PO PRN ×2 (08:18→15:15)
[2020-11-11] MEDS ORDERED: Magnesium 2 GM/50 ML 1 GM in Premix Bag 1 BAG IVPB SCH (09:00)
[2020-11-11] MEDS: D5 1/2 NS w/20 mEq KCL 1,000 ML IV SCH (12:48)
[2020-11-11] MEDS ORDERED: Sodium Chloride 0.65% Nasal 44 ML BOT EA NARE PRN (15:08)
[2020-11-11] MEDS ORDERED: Mag-Al 1200 mg/1200 mg/30 ML UDCUP PO PRN (18:02)
[2020-11-11] MEDS ORDERED: Nitroglycerin 0.4 MG TAB (25 Tab Bottle) SL PRN (18:02)
[2020-11-11] MEDS ORDERED: Bisacodyl 10 MG SUPP PR PRN (18:02)
[2020-11-11] MEDS ORDERED: Bisacodyl 5 MG TAB PO PRN (18:02)
[2020-11-11] MEDS ORDERED: Guaifenesin DM 100-10/5 ML UDCUP PO PRN (18:02)
[2020-11-11] MEDS ORDERED: Fentanyl 100 MCG/2 ML VIAL SLOW IVP PRN (18:02)
[2020-11-11] MEDS ORDERED: Milk Of Magnesia 30 ML UDCUP PO PRN (18:02)
[2020-11-11] MEDS ORDERED: Zolpidem Tartrate 5 MG TAB PO PRN (18:02)
[2020-11-11] MEDS ORDERED: diphenhydrAMINE 25 MG CAP PO PRN (18:02)
[2020-11-11] MEDS ORDERED: Mineral Oil ENEMA PR PRN (18:02)
[2020-11-11] MEDS ORDERED: Famotidine 20 MG TAB PO SCH (18:15)
[2020-11-11] MEDS ORDERED: Potassium Chloride 10 MEQ TAB PO SCH (18:15)
[2020-11-11] MEDS ORDERED: Amiodarone 200 MG TAB PO SCH (18:15)
[2020-11-11] MEDS ORDERED: Multivit, Therapeutic 1 TAB PO SCH (18:30)
[2020-11-11] MEDS ORDERED: Cholecalciferol 1,000 UNITS (25 MCG) TAB PO SCH (18:30)
[2020-11-11] MEDS ORDERED: Calcium Carbonate 600 MG + Vit D TAB PO SCH (18:30)
[2020-11-11] MEDS: Metoprolol Tartrate 25 MG TAB PO SCH (20:11)
[2020-11-11] MEDS: Ezetimibe 10 MG TAB PO SCH (20:12)
[2020-11-11] MEDS: Atorvastatin Calcium 40 MG TAB PO SCH (20:12)
[2020-11-12] MEDS: Ketorolac Tromethamine 30 MG/ML VIAL IVP SCH ×4 (05:29→22:10)
[2020-11-12] MEDS: Ondansetron PF 4 MG/2 ML Vial IVP PRN ×2 (07:43→15:08)
[2020-11-12] MEDS ORDERED: Potassium Chloride 10 MEQ TAB PO SCH (08:00)
[2020-11-12] MEDS: Famotidine 20 MG TAB PO SCH ×2 (09:12→20:06)
[2020-11-12] MEDS: Aspirin Chewable 81 MG TAB PO SCH (09:13)
[2020-11-12] MEDS: Amiodarone 200 MG TAB PO SCH ×2 (09:13→20:06)
[2020-11-12] MEDS: Potassium Chloride 10 MEQ TAB PO SCH (09:14)
[2020-11-12] MEDS: Furosemide 20 MG TAB PO SCH (09:14)
[2020-11-12] MEDS: Multivit, Therapeutic 1 TAB PO SCH (09:14)
[2020-11-12] MEDS: Metoprolol Tartrate 25 MG TAB PO SCH ×2 (09:17→20:06)
[2020-11-12] MEDS: Calcium Carbonate 600 MG + Vit D TAB PO SCH (09:19)
[2020-11-12] MEDS: Cholecalciferol 1,000 UNITS (25 MCG) TAB PO SCH (09:19)
[2020-11-12] MEDS ORDERED: Amiodarone 150 MG, Admixture Fee 1 EACH in Dextrose 5% in Water 100 ML IVPB SCH (13:30)
[2020-11-12] MEDS: Amiodarone 450 MG in Dextrose 5% in Water 250 ML IVPB SCH ×2 (13:41→23:49)
[2020-11-12] MEDS: Atorvastatin Calcium 40 MG TAB PO SCH (20:05)
[2020-11-12] MEDS: Ezetimibe 10 MG TAB PO SCH (20:06)
[2020-11-13 05:07] LABS: Anion Gap 15 mmol/L (10-20); BUN (Urea Nitrogen) 17 mg/dL (9.8-20.1); Calc. Creatinine Clearance 73 mL/min (70-130); Carbon Dioxide 20 mmol/L (23-31); Chloride 100 mmol/L (98-107); Glucose 140 mg/dL (83-110); Potassium 4.7 mmol/L (3.5-5.1); Sodium 130 mmol/L (136-145)
[2020-11-13] MEDS: Ketorolac Tromethamine 30 MG/ML VIAL IVP SCH ×4 (05:10→23:32)
[2020-11-13 05:13] LABS: Band 16 % (5-11); Hemoglobin 9.1 g/dL (12.0-16.0); Hypochromia SLIGHT = 6-15 cells (100X) (0-5/hpf); Lymphocytes 23 % (21-51); MDiff Complete? YES; Mean Corpuscular HGB CONC 31.8 g/dL (32.0-36.0); Mean Corpuscular Hemoglobin 29.7 pg (27.0-31.0); Mean Corpuscular Volume 93.2 fL (78.0-98.0); Mean Platelet Volume 9.9 fL (7.4-10.4); Monocytes 9 % (0-10); Neutrophil 52 % (42-75); Platelet Count 119 thou/uL (130-400); Platelet Morphology Comment Appears Decreased; RBC Distribution Width 13.7 % (11.5-14.5); Red Blood Cell (RBC) Count 3.08 mill/uL (4.20-5.40); White Blood Cell (WBC) Count 5.1 thou/uL (4.8-10.8)
[2020-11-13] MEDS: traMADol HCl 50 MG TAB PO PRN (10:05)
[2020-11-13] MEDS: Amiodarone 200 MG TAB PO SCH ×2 (10:07→20:47)
[2020-11-13] MEDS: Metoprolol Tartrate 25 MG TAB PO SCH ×2 (10:08→20:47)
[2020-11-13] MEDS: Potassium Chloride 10 MEQ TAB PO SCH (10:09)
[2020-11-13] MEDS: Calcium Carbonate 600 MG + Vit D TAB PO SCH (10:09)
[2020-11-13] MEDS: Furosemide 20 MG TAB PO SCH (10:09)
[2020-11-13] MEDS: Clopidogrel Bisulfate 75 MG TAB PO SCH (10:09)
[2020-11-13] MEDS: Famotidine 20 MG TAB PO SCH ×2 (10:09→20:47)
[2020-11-13] MEDS: Aspirin Chewable 81 MG TAB PO SCH (10:09)
[2020-11-13] MEDS: Multivit, Therapeutic 1 TAB PO SCH (10:09)
[2020-11-13] MEDS: Cholecalciferol 1,000 UNITS (25 MCG) TAB PO SCH (10:28)
[2020-11-13] MEDS: Amiodarone 450 MG in Dextrose 5% in Water 250 ML IVPB SCH (15:43)
[2020-11-13 18:13] VITALS: BMI 28.1
[2020-11-13] MEDS: Ezetimibe 10 MG TAB PO SCH (20:46)
[2020-11-13] MEDS: Atorvastatin Calcium 40 MG TAB PO SCH (20:46)
[2020-11-13] MEDS: ALPRAZolam 0.25 MG TAB PO PRN (23:38)
[2020-11-14] MEDS: Ketorolac Tromethamine 30 MG/ML VIAL IVP SCH ×3 (05:38→18:21)
[2020-11-14] MEDS: Amiodarone 450 MG in Dextrose 5% in Water 250 ML IVPB SCH ×2 (06:03→20:45)
[2020-11-14] MEDS: Potassium Chloride 10 MEQ TAB PO SCH (09:56)
[2020-11-14] MEDS: Cholecalciferol 1,000 UNITS (25 MCG) TAB PO SCH (09:57)
[2020-11-14] MEDS: Aspirin Chewable 81 MG TAB PO SCH (09:57)
[2020-11-14] MEDS: Amiodarone 200 MG TAB PO SCH ×2 (09:57→20:36)
[2020-11-14] MEDS: Calcium Carbonate 600 MG + Vit D TAB PO SCH (09:57)
[2020-11-14] MEDS: Multivit, Therapeutic 1 TAB PO SCH (09:58)
[2020-11-14] MEDS: Famotidine 20 MG TAB PO SCH ×2 (09:58→20:38)
[2020-11-14] MEDS: Clopidogrel Bisulfate 75 MG TAB PO SCH (09:58)
[2020-11-14] MEDS: Furosemide 20 MG TAB PO SCH (09:58)
[2020-11-14] MEDS: Metoprolol Tartrate 25 MG TAB PO SCH ×2 (12:06→20:38)
[2020-11-14] MEDS ORDERED: Furosemide 20 MG/2 ML VIAL SLOW IVP SCH (13:00)
[2020-11-14 17:50] LABS: Anion Gap 17 mmol/L (10-20); BUN (Urea Nitrogen) 18 mg/dL (9.8-20.1); Calc. Creatinine Clearance 69 mL/min (70-130); Calcium 7.5 mg/dL (7.8-10.44); Carbon Dioxide 25 mmol/L (23-31); Chloride 98 mmol/L (98-107); Glucose 126 mg/dL (83-110); Potassium 5.1 mmol/L (3.5-5.1); Sodium 135 mmol/L (136-145)
[2020-11-14] MEDS: Atorvastatin Calcium 40 MG TAB PO SCH (20:37)
[2020-11-14] MEDS: Ezetimibe 10 MG TAB PO SCH (20:38)
[2020-11-14] MEDS: traMADol HCl 50 MG TAB PO PRN (20:39)
[2020-11-14] MEDS: Docusate 100 MG CAP PO PRN (20:39)
[2020-11-14] MEDS: ALPRAZolam 0.25 MG TAB PO PRN (20:40)
[2020-11-15] MEDS: Ketorolac Tromethamine 30 MG/ML VIAL IVP SCH ×2 (00:47→05:31)
[2020-11-15 05:04] LABS: Anion Gap 13 mmol/L (10-20); BUN (Urea Nitrogen) 20 mg/dL (9.8-20.1); Calc. Creatinine Clearance 69 mL/min (70-130); Calcium 7.5 mg/dL (7.8-10.44); Carbon Dioxide 27 mmol/L (23-31); Chloride 97 mmol/L (98-107); Glucose 119 mg/dL (83-110); Sodium 132 mmol/L (136-145)
[2020-11-15] MEDS ORDERED: Furosemide 20 MG TAB PO SCH (08:03)
[2020-11-15] MEDS: Aspirin Chewable 81 MG TAB PO SCH (08:30)
[2020-11-15] MEDS: Calcium Carbonate 600 MG + Vit D TAB PO SCH (08:30)
[2020-11-15] MEDS: Apixaban 5 MG TAB PO SCH ×2 (08:30→21:25)
[2020-11-15] MEDS: Amiodarone 200 MG TAB PO SCH ×2 (08:30→21:24)
[2020-11-15] MEDS: Furosemide 40 MG TAB PO SCH (08:31)
[2020-11-15] MEDS: Famotidine 20 MG TAB PO SCH ×2 (08:31→21:25)
[2020-11-15] MEDS: Metoprolol Tartrate 25 MG TAB PO SCH ×2 (08:31→21:25)
[2020-11-15] MEDS: Lisinopril 5 MG TAB PO SCH (08:31)
[2020-11-15] MEDS: Cholecalciferol 1,000 UNITS (25 MCG) TAB PO SCH (08:31)
[2020-11-15] MEDS: Multivit, Therapeutic 1 TAB PO SCH (08:32)
[2020-11-15] MEDS: Potassium Chloride 10 MEQ TAB PO SCH (08:38)
[2020-11-15 09:26] LABS: Hemoglobin 10.1 g/dL (12.0-16.0); Platelet Count 195 thou/uL (130-400)
[2020-11-15] MEDS: traMADol HCl 50 MG TAB PO PRN ×2 (09:47→16:51)
[2020-11-15] MEDS: Atorvastatin Calcium 40 MG TAB PO SCH (21:25)
[2020-11-15] MEDS: Ezetimibe 10 MG TAB PO SCH (21:25)
[2020-11-15] MEDS: Docusate 100 MG CAP PO PRN (21:26)
[2020-11-16] MEDS: traMADol HCl 50 MG TAB PO PRN (01:14)
[2020-11-16] MEDS ORDERED: Amiodarone 200 MG TAB PO SCH (09:00)
[2020-11-16] MEDS: Metoprolol Tartrate 25 MG TAB PO SCH (09:01)
[2020-11-16] MEDS: Calcium Carbonate 600 MG + Vit D TAB PO SCH (09:04)
[2020-11-16] MEDS: Cholecalciferol 1,000 UNITS (25 MCG) TAB PO SCH (09:04)
[2020-11-16] MEDS: Aspirin Chewable 81 MG TAB PO SCH (09:04)
[2020-11-16] MEDS: Apixaban 5 MG TAB PO SCH (09:04)
[2020-11-16] MEDS: Lisinopril 5 MG TAB PO SCH (09:05)
[2020-11-16] MEDS: Furosemide 40 MG TAB PO SCH (09:05)
[2020-11-16] MEDS: Famotidine 20 MG TAB PO SCH (09:05)
[2020-11-16] MEDS: Multivit, Therapeutic 1 TAB PO SCH (09:06)
[2020-11-16 11:35] VITALS: TEMP 97.9
[2020-11-16 13:08] VITALS: BP 158/68
[2020-11-23 11:25] LABS: Actual Bicarbonate (HCO3a) 20.2 mEq/L (22-28); Analyzer IN Cardio OR; Base Excess (BEa) -2.9 mEq/L (-2.0 to +3.0); CO2 Tension 29.9 mmHg (35.0-45.0); Calcium, Ionized (arterial) 1.05 mmol/L (1.12-1.30); Carboxyhemoglobin (COHb) 0.2 gm% (0.0-3.0); Hemoglobin (Hb) 11.1 g/dL (12.0-16.0); O2 Tension (PaO2), arterial 351.2 mmHg (> 70.0); pH, Arterial 7.45 (7.35-7.45)
[2020-11-23 11:26] LABS: Actual Bicarbonate (HCO3a) 19.1 mEq/L (22-28); Analyzer IN Cardio OR; Base Excess (BEa) -4.6 mEq/L (-2.0 to +3.0); CO2 Tension 30.7 mmHg (35.0-45.0); Calcium, Ionized (arterial) 1.03 mmol/L (1.12-1.30); Carboxyhemoglobin (COHb) 0.3 gm% (0.0-3.0); Hemoglobin (Hb) 11.1 g/dL (12.0-16.0); O2 Tension (PaO2), arterial 388.9 mmHg (> 70.0); Potassium - ABG Lab 3.63 mmol/L (3.70-5.30); pH, Arterial 7.41 (7.35-7.45)
[2020-11-23 11:26] LABS: Actual Bicarbonate (HCO3a) 20.5 mEq/L (22-28); Analyzer IN Cardio OR; Base Excess (BEa) -2.8 mEq/L (-2.0 to +3.0); CO2 Tension 28.9 mmHg (35.0-45.0); Calcium, Ionized (arterial) 0.88 mmol/L (1.12-1.30); Carboxyhemoglobin (COHb) 0.3 gm% (0.0-3.0); O2 Tension (PaO2), arterial 475.5 mmHg (> 70.0); Potassium - ABG Lab 4.24 mmol/L (3.70-5.30); pH, Arterial 7.47 (7.35-7.45)
[2020-11-23 11:26] LABS: Actual Bicarbonate (HCO3v) 21 mEq/L (22-28); Analyzer IN Cardio OR; Base Excess -2.7 mEq/L (-2.0 to +3.0); Calcium, Ionized (venous) 0.93 mmol/L (1.16-1.32); Chloride (VBG) 104 mmol/L (98-106); Hemoglobin (Hb) 6.8 g/dL (11.7-16.1); Potassium (VBG) 4.11 mmol/L (3.70-5.30); Sodium 133.5 mmol/L (133-146); pH (venous) 7.43 (7.32-7.43)
[2020-11-23 11:27] LABS: Puncture Site Arterial Line
[2020-11-23 11:27] LABS: Actual Bicarbonate (HCO3a) 18.7 mEq/L (22-28); Analyzer IN Cardio OR; Base Excess (BEa) -6.8 mEq/L (-2.0 to +3.0); CO2 Tension 37.4 mmHg (35.0-45.0); Calcium, Ionized (arterial) 1.02 mmol/L (1.12-1.30); Carboxyhemoglobin (COHb) 0.3 gm% (0.0-3.0); Hemoglobin (Hb) 10.7 g/dL (12.0-16.0); O2 Tension (PaO2), arterial 471.6 mmHg (> 70.0); Potassium - ABG Lab 3.63 mmol/L (3.70-5.30); pH, Arterial 7.32 (7.35-7.45)
[2020-11-23 11:27] LABS: Actual Bicarbonate (HCO3a) 18.9 mEq/L (22-28); Analyzer IN Cardio OR; Base Excess (BEa) -6.8 mEq/L (-2.0 to +3.0); CO2 Tension 38.5 mmHg (35.0-45.0); Calcium, Ionized (arterial) 1.02 mmol/L (1.12-1.30); Carboxyhemoglobin (COHb) 0.3 gm% (0.0-3.0); Hemoglobin (Hb) 10.7 g/dL (12.0-16.0); Potassium - ABG Lab 3.65 mmol/L (3.70-5.30); pH, Arterial 7.31 (7.35-7.45)
[2020-11-23 11:28] LABS: Puncture Site Arterial Line
[2020-11-23 11:28] LABS: Puncture Site Arterial Line
[2020-11-23 11:29] LABS: Puncture Site Arterial Line
[2020-11-23 11:29] LABS: Puncture Site Arterial Line
== END 2020-11-16 14:05 | disposition home or self-care (01) | DRG 234 ==
LOC: CCL 05:56 → CCU 13:41 → 2NO 11-11 18:02
PROVIDERS: ADMIT Internal Medicine Cardiovascular Disease; ATTEND Internal Medicine Cardiovascular Disease
PROC: 4A023N7 Measurement of Cardiac Sampling and Pressure, Left Heart, Percutaneous Approach (ICD-10-PCS; principal; 2020-11-09)
PROC: B2111ZZ Fluoroscopy of Multiple Coronary Arteries using Low Osmolar Contrast (ICD-10-PCS; 2020-11-09)
PROC: B2151ZZ Fluoroscopy of Left Heart using Low Osmolar Contrast (ICD-10-PCS; 2020-11-09)
PROC: 4A033BC Measurement of Arterial Pressure, Coronary, Percutaneous Approach (ICD-10-PCS; 2020-11-09)
PROC: 02100Z9 Bypass Coronary Artery, One Artery from Left Internal Mammary, Open Approach (ICD-10-PCS; 2020-11-10)
PROC: 021009W Bypass Coronary Artery, One Artery from Aorta with Autologous Venous Tissue, Open Approach (ICD-10-PCS; 2020-11-10)
PROC: 06BQ0ZZ Excision of Left Saphenous Vein, Open Approach (ICD-10-PCS; 2020-11-10)
PROC: 5A1221Z Performance of Cardiac Output, Continuous (ICD-10-PCS; 2020-11-10)
DX: I25.10 Atherosclerotic heart disease of native coronary artery without angina pectoris (principal); C90.00 Multiple myeloma not having achieved remission; Z20.822 Contact with and (suspected) exposure to COVID-19; T82.855A Stenosis of coronary artery stent, initial encounter; I10 Essential (primary) hypertension; E78.5 Hyperlipidemia, unspecified; I48.0 Paroxysmal atrial fibrillation; K21.9 Gastro-esophageal reflux disease without esophagitis; Y84.8 Other medical procedures as the cause of abnormal reaction of the patient, or of later complication, without mention of misadventure at the time of the procedure; Z88.1 Allergy status to other antibiotic agents; Z88.2 Allergy status to sulfonamides; Z95.5 Presence of coronary angioplasty implant and graft; Z87.891 Personal history of nicotine dependence; Z79.01 Long term (current) use of anticoagulants; Z79.899 Other long term (current) drug therapy; I25.2 Old myocardial infarction
CPT/HCPCS: 36415; 36416; 71045; 76942; 80048; 80053; 82553; 82805; 84484; 85014; 85018; 85025; 85049; 85610; 85730; 86850; 86900; 86901; 87635; 93005; 93010; 93458; 93798; 97139; 99152; J0171; J0282; J0360; J0690; J1100; J1160; J1644; J1885; J1940; J2001; J2150; J2250; J2405; J2440; J2720; J3010; J3370; J3475; J3480; J3490; J7070; P9045; Q9967; S0017; S0020; S0028; U0003; U0005

== ENCOUNTER 2020-12-22 08:12 | Outpatient (CLI) | payer MEDICARE, BC | END 2020-12-22 08:13 | disposition home or self-care (01) | LOC: PET 08:12 | PROVIDERS: ATTEND Internal Medicine Hematology & Oncology | DX: C90.00 Multiple myeloma not having achieved remission (principal); C79.51 Secondary malignant neoplasm of bone; I70.90 Unspecified atherosclerosis | CPT/HCPCS: 78815; A9552 ==

== ENCOUNTER 2021-01-06 14:27 | Outpatient (CLI) | payer MEDICARE, BC ==
[~2021-01-06 14:27] MED LIST changes: -Iopamidol-370 76% 500 ML 1 ML ONE; +Magnevist 469MG/ML 20 ML VIAL ONE
== END 2021-01-06 14:28 | disposition home or self-care (01) ==
LOC: BICMRI 14:27
PROVIDERS: ATTEND Internal Medicine Hematology & Oncology
DX: C90.00 Multiple myeloma not having achieved remission (principal); C79.51 Secondary malignant neoplasm of bone; M54.6 Pain in thoracic spine
CPT/HCPCS: 72157; A9579

== ENCOUNTER 2021-06-29 08:15 | Outpatient (CLI) | payer MEDICARE, BC | END 2021-06-29 08:16 | disposition home or self-care (01) | LOC: PET 08:15 | PROVIDERS: ATTEND Internal Medicine Hematology & Oncology | DX: C90.00 Multiple myeloma not having achieved remission (principal); C79.51 Secondary malignant neoplasm of bone | CPT/HCPCS: 78815; A9552 ==

== ENCOUNTER 2021-10-29 07:57 | Outpatient (CLI) | payer MEDICARE, BC | END 2021-10-29 07:58 | disposition home or self-care (01) | LOC: SCSMRI 07:57 | PROVIDERS: ATTEND Internal Medicine Hematology & Oncology | DX: M25.512 Pain in left shoulder (principal); C90.00 Multiple myeloma not having achieved remission; C79.51 Secondary malignant neoplasm of bone; R60.0 Localized edema; M75.82 Other shoulder lesions, left shoulder ==

== ENCOUNTER 2021-12-28 08:45 | Outpatient (CLI) | payer MEDICARE, BC | END 2021-12-28 08:46 | disposition home or self-care (01) | LOC: PET 08:45 | PROVIDERS: ATTEND Internal Medicine Hematology & Oncology | DX: C90.00 Multiple myeloma not having achieved remission (principal); C79.51 Secondary malignant neoplasm of bone | CPT/HCPCS: 78815; A9552 ==

== ENCOUNTER 2022-10-28 09:08 | Outpatient (CLI) | payer MEDICARE, BC | END 2022-10-28 09:09 | disposition home or self-care (01) | LOC: TBSIIMAG 09:08 | PROVIDERS: ATTEND Family Medicine | DX: M25.551 Pain in right hip (principal); M47.26 Other spondylosis with radiculopathy, lumbar region; M16.11 Unilateral primary osteoarthritis, right hip; M41.9 Scoliosis, unspecified; M89.9 Disorder of bone, unspecified; M89.38 Hypertrophy of bone, other site; M71.38 Other bursal cyst, other site; M48.061 Spinal stenosis, lumbar region without neurogenic claudication; R93.7 Abnormal findings on diagnostic imaging of other parts of musculoskeletal system; M48.56XD Collapsed vertebra, not elsewhere classified, lumbar region, subsequent encounter for fracture with routine healing | CPT/HCPCS: 72100; 72148 ==

== ENCOUNTER 2023-05-22 19:34 | Emergency (ER) | payer MEDICARE, BC ==
[2023-05-22 20:18] LABS: #Eosinphils 0.1 thou/uL (0.0-0.7); #Monocytes 1.2 thou/uL (0.11-0.59); #Neutrophils 6.5 thou/uL (1.40-6.50); %Basophils 0.4 % (0.0-1.0); %Eosinophils 0.6 % (0.0-10.0); %Lymphocytes 8.5 % (21.0-51.0); %Monocytes 14.4 % (0.0-10.0); %Neutrophils 75.9 % (42.0-75.0); Hematocrit 32.5 % (36.0-47.0); Hemoglobin 10.7 g/dL (12.0-16.0); Mean Corpuscular HGB CONC 32.9 g/dL (32.0-36.0); Mean Corpuscular Hemoglobin 29.8 pg (27.0-31.0); Mean Corpuscular Volume 90.5 fl (78.0-98.0); Mean Platelet Volume 11.7 fL (7.4-10.4); Platelet Count 217 10x3/uL (130-400); RBC Distribution Width 14.7 % (11.5-14.5); Red Blood Cell (RBC) Count 3.59 mill/uL (4.20-5.40); White Blood Cell (WBC) Count 8.5 10x3/uL (4.8-10.8)
[2023-05-22 20:51] LABS: ALT (SGPT) 38 U/L (8-55); AST (SGOT) 49 U/L (5-34); Albumin 4.2 g/dL (3.4-4.8); Alkaline Phosphatase 58 U/L (40-110); Anion Gap 20 mmol/L (10-20); BUN (Urea Nitrogen) 18 mg/dL (9.8-20.1); Bilirubin, Total 0.4 mg/dL (0.2-1.2); Calc. Creatinine Clearance 0 mL/min (70-130); Calcium 8.7 mg/dL (7.8-10.44); Carbon Dioxide 19 mmol/L (23-31); Chloride 102 mmol/L (98-107); Estimated GFR 60; Globulin 3.1 g/dL (2.4-3.5); Glucose 117 mg/dL (83-110); Lipase 24 U/L (8-78); Potassium 4.6 mmol/L (3.5-5.1); Protein, Total 7.3 g/dL (5.8-8.1); Sodium 136 mmol/L (136-145)
[2023-05-22 21:15] LABS: Bacteria/HPF None Seen HPF (None Seen); Bilirubin Negative (Negative); Blood, Urine Negative (Negative); CAUTI Indications for Culture Pelvic or flank pain; Clarity Clear (Clear); Glucose, Urine (Dipstick) 70 mg/dL (Negative); Ketone, Urine Negative (Negative); Leukocyte Negative Leu/uL (Negative); Nitrite Negative (Negative); Protein, Urine (Dipstick) 20 mg/dL (Neg-Trace); RBC/HPF 0-3 HPF (0-3); Specific Gravity, Urine 1.018 (1.002-1.036); Squamous Epithelial None Seen HPF (0-3); Urobilinogen Normal mg/dL (Less than 2); WBC/HPF 0-3 HPF (0-3); pH, Urine 6.5 (5.0-9.0)
[2023-05-22 21:21] LABS: Urine Culture Reflex No No
[2023-05-22] MEDS ORDERED: Morphine 4 MG/ML VIAL ONE (23:01)
[2023-05-23] MEDS ORDERED: Metoprolol Tartrate 5 MG/5 ML VIAL ONE ×3 (01:46→02:34)
[2023-05-23] MEDS ORDERED: Metoprolol Tartrate 25 MG TAB ONE (01:46)
[2023-05-23] MEDS ORDERED: Morphine 4 MG/ML VIAL ONE (02:34)
[2023-05-23] MEDS ORDERED: Apixaban 5 MG TAB PO SCH (04:15)
[2023-05-23 04:30] LABS: INR-International Normal Ratio 1.3; Prothrombin Time 16.3 sec (12.0-14.7)
[2023-05-23 04:40] LABS: Troponin I 0.028 ng/mL (< 0.028)
[2023-05-23 05:01] LABS: Magnesium 1.5 mg/dL (1.6-2.6)
== END 2023-05-23 05:05 | disposition home or self-care (01) ==
LOC: ERS 19:34
DX: N83.511 Torsion of right ovary and ovarian pedicle (principal); I48.91 Unspecified atrial fibrillation; I25.10 Atherosclerotic heart disease of native coronary artery without angina pectoris; I10 Essential (primary) hypertension; Z79.899 Other long term (current) drug therapy; Z79.82 Long term (current) use of aspirin; Z79.01 Long term (current) use of anticoagulants
CPT/HCPCS: 36415; 71045; 76856; 80053; 81001; 83605; 83690; 83735; 83880; 84484; 85025; 85610; 85730; 93005; 96361; 96374; 96375; 96376; J2270

== ENCOUNTER → 2023-06-20 | Outpatient (CLI) | payer MEDICARE, BC | LOC: PET 08:00 | PROVIDERS: ATTEND Internal Medicine Hematology & Oncology | DX: C90.00 Multiple myeloma not having achieved remission (principal); C79.51 Secondary malignant neoplasm of bone | CPT/HCPCS: 78816; A9552 ==

== ENCOUNTER 2023-07-11 12:47 | Outpatient (CLI) | payer MEDICARE, BC | END 2023-07-11 12:48 | disposition home or self-care (01) | LOC: SCSMRI 12:47 | PROVIDERS: ATTEND Internal Medicine Hematology & Oncology | DX: C90.00 Multiple myeloma not having achieved remission (principal); C79.51 Secondary malignant neoplasm of bone; R93.89 Abnormal findings on diagnostic imaging of other specified body structures; D49.2 Neoplasm of unspecified behavior of bone, soft tissue, and skin | CPT/HCPCS: 72158 ==

== ENCOUNTER 2023-07-28 09:09 | Day surgery (SDC) | payer MEDICARE, BC ==
[2023-07-28 09:07] LABS: #Basophils 0.1 thou/uL (0.0-0.2); #Eosinphils 0.4 thou/uL (0.0-0.7); #Monocytes 0.8 thou/uL (0.11-0.59); #Neutrophils 4.1 thou/uL (1.40-6.50); %Lymphocytes 11.9 % (21.0-51.0); %Monocytes 12.6 % (0.0-10.0); %Neutrophils 67.2 % (42.0-75.0); Hematocrit 37.2 % (36.0-47.0); Hemoglobin 12.2 g/dL (12.0-16.0); Mean Corpuscular HGB CONC 32.8 g/dL (32.0-36.0); Mean Corpuscular Hemoglobin 29.3 pg (27.0-31.0); Mean Corpuscular Volume 89.2 fl (78.0-98.0); Mean Platelet Volume 10.8 fL (7.4-10.4); Platelet Count 276 10x3/uL (130-400); RBC Distribution Width 14.9 % (11.5-14.5); Red Blood Cell (RBC) Count 4.17 mill/uL (4.20-5.40); White Blood Cell (WBC) Count 6.1 10x3/uL (4.8-10.8)
[2023-07-28 09:24] LABS: Prothrombin Time 13.1 sec (12.0-14.7)
[2023-07-28 09:25] LABS: PTT 25.5 sec (22.9-36.1)
[2023-07-28 09:26] LABS: Anion Gap 14 mmol/L (10-20); BUN (Urea Nitrogen) 13 mg/dL (9.8-20.1); Calc. Creatinine Clearance 0 mL/min (70-130); Calcium 8.7 mg/dL (7.8-10.44); Carbon Dioxide 28 mmol/L (23-31); Chloride 104 mmol/L (98-107); Estimated GFR 68; Glucose 115 mg/dL (83-110); Potassium 4.1 mmol/L (3.5-5.1); Sodium 142 mmol/L (136-145)
[2023-07-28] MEDS ORDERED: Sodium Bicarbonate 2.5 MEQ/5 ML SDV ONE (10:40)
[2023-07-28] MEDS ORDERED: fentaNYL 50 mcg/mL 1 mL Vial ONE (10:40)
[2023-07-28] MEDS ORDERED: Midazolam HCl 2 mg/2 ml Vial ONE (10:40)
[2023-07-28] MEDS ORDERED: Lidocaine 1% PF 5 ML VIAL ONE ×2 (11:20→11:24)
[2023-07-28] MEDS ORDERED: Lidocaine 1% w/Epinephrine 1:100K 20 ML VIAL ONE (11:39)
== END 2023-07-28 13:10 | disposition home or self-care (01) ==
LOC: CT 09:09
PROVIDERS: ATTEND Internal Medicine Hematology & Oncology
DX: C90.00 Multiple myeloma not having achieved remission (principal); C79.51 Secondary malignant neoplasm of bone; C85.80 Other specified types of non-Hodgkin lymphoma, unspecified site; Z01.812 Encounter for preprocedural laboratory examination; M54.40 Lumbago with sciatica, unspecified side; G89.29 Other chronic pain; Z95.5 Presence of coronary angioplasty implant and graft; Z87.891 Personal history of nicotine dependence; Z79.899 Other long term (current) drug therapy; Z79.01 Long term (current) use of anticoagulants; Z88.2 Allergy status to sulfonamides
CPT/HCPCS: 20225; 77002; 80048; 85025; 85610; 85730; J3010; 36415; 88184; 88185; 88307; 88311; 88333; 88334; 88341; 88342; 88365; J2250

== ENCOUNTER 2023-09-11 03:55 | Inpatient (IN) | payer MEDICARE, BC ==
[2023-09-11 05:17] LABS: #Monocytes 0.9 thou/uL (0.11-0.59); #Neutrophils 7.3 thou/uL (1.40-6.50); %Eosinophils 0.2 % (0.0-10.0); %Lymphocytes 1.9 % (21.0-51.0); %Monocytes 10.6 % (0.0-10.0); %Neutrophils 85.4 % (42.0-75.0); Hematocrit 29.9 % (36.0-47.0); Hemoglobin 9.9 g/dL (12.0-16.0); Mean Corpuscular HGB CONC 33.1 g/dL (32.0-36.0); Mean Corpuscular Hemoglobin 29.3 pg (27.0-31.0); Mean Corpuscular Volume 88.5 fl (78.0-98.0); Mean Platelet Volume 12.6 fL (7.4-10.4); Platelet Count 123 10x3/uL (130-400); RBC Distribution Width 18.6 % (11.5-14.5); Red Blood Cell (RBC) Count 3.38 mill/uL (4.20-5.40); White Blood Cell (WBC) Count 8.6 10x3/uL (4.8-10.8)
[2023-09-11 05:27] LABS: INR-International Normal Ratio 1.4; PTT 23.2 sec (22.9-36.1); Prothrombin Time 17.3 sec (12.0-14.7)
[2023-09-11 05:46] LABS: ALT (SGPT) 403 U/L (8-55); AST (SGOT) 108 U/L (5-34); Albumin 3.5 g/dL (3.4-4.8); Alkaline Phosphatase 70 U/L (40-110); Anion Gap 16 mmol/L (10-20); BUN (Urea Nitrogen) 43 mg/dL (9.8-20.1); Bilirubin, Total 0.8 mg/dL (0.2-1.2); Calc. Creatinine Clearance 0 mL/min (70-130); Carbon Dioxide 19 mmol/L (23-31); Chloride 99 mmol/L (98-107); Estimated GFR 55; Globulin 1.8 g/dL (2.4-3.5); Glucose 176 mg/dL (83-110); Lipase 38 U/L (8-78); Magnesium 2.4 mg/dL (1.6-2.6); Potassium 4.1 mmol/L (3.5-5.1); Protein, Total 5.3 g/dL (5.8-8.1); Sodium 130 mmol/L (136-145)
[2023-09-11 05:50] LABS: Troponin I 0.014 ng/mL (< 0.028)
[2023-09-11] MEDS ORDERED: Metoprolol Tartrate 5 MG (5 mL) VIAL ONE (05:54)
[2023-09-11] MEDS ORDERED: Furosemide 40 MG (4 mL) VIAL ONE (05:54)
[2023-09-11] MEDS ORDERED: traMADol HCl 50 MG TAB PO PRN (06:22)
[2023-09-11 06:40] VITALS: BMI 26.3
[2023-09-11 06:53] LABS: SARS-CoV-2 NAA Rapid Test Not Detected (NotDetected)
[2023-09-11] MEDS ORDERED: Non-Formulary Item 1 EACH (Omeprazole [Omeprazole] 20 MG Capsule.Dr) PO SCH (09:00)
[2023-09-11] MEDS ORDERED: CALCIUM CARBONATE PO SCH (09:00)
[2023-09-11] MEDS ORDERED: VITAMIN D3 PO SCH (09:00)
[2023-09-11] MEDS ORDERED: Non-Formulary Item 1 EACH (Cholecalciferol (Vitamin D3) [Vitamin D3] 1000 UNIT Capsule) PO SCH (09:00)
[2023-09-11] MEDS ORDERED: [UNRECOGNIZED DRUG - OTHER] PO SCH (09:00)
[2023-09-11] MEDS ORDERED: Apixaban 5 MG TAB ONE (09:22)
[2023-09-11] MEDS ORDERED: Aspirin Chewable 81 MG TAB ONE (09:23)
[2023-09-11] MEDS ORDERED: Metoprolol Tartrate 25 MG TAB ONE (09:23)
[2023-09-11] MEDS: Calcium Carbonate 600 MG + Vit D TAB PO SCH (09:25)
[2023-09-11] MEDS: Apixaban 5 MG TAB PO SCH (09:26)
[2023-09-11] MEDS: Aspirin Chewable 81 MG TAB PO SCH (09:27)
[2023-09-11 09:35] LABS: Lactic Acid 2.8 mmol/L (0.5-2.2)
[2023-09-11] MEDS ORDERED: Metoprolol Tartrate 50 MG TAB ONE (09:36)
[2023-09-11 09:45] LABS: Troponin I 0.019 ng/mL (< 0.028)
[2023-09-11] MEDS: Lactated Ringer's 1,000 ML IV SCH (09:47)
[2023-09-11] MEDS: Metoprolol Tartrate 50 MG TAB PO SCH ×2 (09:47→19:21)
[2023-09-11] MEDS: Metoprolol Tartrate 25 MG TAB PO SCH (09:48)
[2023-09-11] MEDS ORDERED: Iopamidol 370 76% 100 ML VIAL ONE (10:48)
[2023-09-11] MEDS ORDERED: predniSONE 20 MG TAB ONE (14:24)
[2023-09-11] MEDS: predniSONE 20 MG TAB PO SCH (14:30)
[2023-09-11 18:03] LABS: Troponin I 0.023 ng/mL (< 0.028)
[2023-09-11] MEDS: ALPRAZolam 0.25 MG TAB PO PRN (19:21)
[2023-09-11] MEDS: dilTIAZem 25 MG/5 ML VIAL SLOW IVP SCH (19:38)
[2023-09-11] MEDS: dilTIAZem 25 MG/5 ML VIAL ONE (19:39)
[2023-09-11 20:32] LABS: Anion Gap 15 mmol/L (10-20); BUN (Urea Nitrogen) 29 mg/dL (9.8-20.1); Calc. Creatinine Clearance 46 mL/min (70-130); Calcium 7.7 mg/dL (7.8-10.44); Carbon Dioxide 22 mmol/L (23-31); Chloride 100 mmol/L (98-107); Estimated GFR 53; Glucose 204 mg/dL (83-110); Magnesium 2.1 mg/dL (1.6-2.6); Phosphorus 4.4 mg/dL (2.3-4.7); Potassium 3.9 mmol/L (3.5-5.1); Sodium 133 mmol/L (136-145)
[2023-09-11] MEDS: Atorvastatin Calcium 40 MG TAB PO SCH (20:42)
[2023-09-11] MEDS: dilTIAZem 125 MG in Sodium Chloride 0.9% 100 ML IVPB SCH (20:42)
[2023-09-11] MEDS: Ezetimibe 10 MG TAB PO SCH (20:42)
[2023-09-11] MEDS ORDERED: Non-Formulary Item 1 EACH (Atorvastatin Calcium [Atorvastatin Calcium] 80 MG Tablet) PO SCH (21:00)
[2023-09-12] MEDS: Calcium Carbonate 500 MG ChewTAB PO SCH (05:28)
[2023-09-12 06:29] LABS: Hemoglobin A1c 6.7 % (4.0-6.0)
[2023-09-12 06:41] LABS: #Monocytes 0.5 thou/uL (0.11-0.59); #Neutrophils 5.2 thou/uL (1.40-6.50); %Basophils 0.2 % (0.0-1.0); %Eosinophils 0.2 % (0.0-10.0); %Lymphocytes 3.2 % (21.0-51.0); %Monocytes 7.9 % (0.0-10.0); %Neutrophils 87.2 % (42.0-75.0); Hematocrit 28.3 % (36.0-47.0); Hemoglobin 9.6 g/dL (12.0-16.0); Mean Corpuscular HGB CONC 33.9 g/dL (32.0-36.0); Mean Corpuscular Hemoglobin 29.6 pg (27.0-31.0); Mean Corpuscular Volume 87.3 fl (78.0-98.0); RBC Distribution Width 18.7 % (11.5-14.5); Red Blood Cell (RBC) Count 3.24 mill/uL (4.20-5.40)
[2023-09-12 06:53] LABS: Platelet Count 112 10x3/uL (130-400)
[2023-09-12 07:06] LABS: ALT (SGPT) 334 U/L (8-55); AST (SGOT) 63 U/L (5-34); Albumin 3.1 g/dL (3.4-4.8); Alkaline Phosphatase 69 U/L (40-110); Anion Gap 12 mmol/L (10-20); BUN (Urea Nitrogen) 22 mg/dL (9.8-20.1); Bilirubin, Total 0.9 mg/dL (0.2-1.2); Calc. Creatinine Clearance 58 mL/min (70-130); Calcium 7.6 mg/dL (7.8-10.44); Carbon Dioxide 28 mmol/L (23-31); Chloride 101 mmol/L (98-107); Estimated GFR 73; Globulin 1.8 g/dL (2.4-3.5); Glucose 154 mg/dL (83-110); Potassium 3.5 mmol/L (3.5-5.1); Protein, Total 4.9 g/dL (5.8-8.1); Sodium 137 mmol/L (136-145)
[2023-09-12] MEDS ORDERED: Calcium Carbonate 500 MG ChewTAB PO SCH (09:00)
[2023-09-12] MEDS: predniSONE 20 MG TAB PO SCH (09:12)
[2023-09-12] MEDS: Metoprolol Tartrate 25 MG TAB PO SCH (21:23)
[2023-09-12] MEDS: Acyclovir 400 mg Tablet PO SCH (22:32)
[2023-09-13 06:29] LABS: #Eosinphils 0.1 thou/uL (0.0-0.7); #Monocytes 0.4 thou/uL (0.11-0.59); #Neutrophils 4.2 thou/uL (1.40-6.50); %Lymphocytes 3.9 % (21.0-51.0); %Monocytes 7.3 % (0.0-10.0); %Neutrophils 86.8 % (42.0-75.0); Hematocrit 31.1 % (36.0-47.0); Hemoglobin 10.2 g/dL (12.0-16.0); Mean Corpuscular HGB CONC 32.8 g/dL (32.0-36.0); Mean Corpuscular Hemoglobin 28.5 pg (27.0-31.0); Mean Corpuscular Volume 86.9 fl (78.0-98.0); Mean Platelet Volume 12.4 fL (7.4-10.4); Platelet Count 120 10x3/uL (130-400); RBC Distribution Width 19.3 % (11.5-14.5); Red Blood Cell (RBC) Count 3.58 mill/uL (4.20-5.40); White Blood Cell (WBC) Count 4.8 10x3/uL (4.8-10.8)
[2023-09-13 06:48] LABS: ALT (SGPT) 275 U/L (8-55); AST (SGOT) 39 U/L (5-34); Albumin 3.3 g/dL (3.4-4.8); Alkaline Phosphatase 69 U/L (40-110); Anion Gap 9 mmol/L (10-20); BUN (Urea Nitrogen) 20 mg/dL (9.8-20.1); Bilirubin, Total 1.1 mg/dL (0.2-1.2); Calc. Creatinine Clearance 55 mL/min (70-130); Calcium 7.9 mg/dL (7.8-10.44); Carbon Dioxide 26 mmol/L (23-31); Chloride 104 mmol/L (98-107); Estimated GFR 72; Globulin 1.8 g/dL (2.4-3.5); Glucose 110 mg/dL (83-110); Potassium 3.3 mmol/L (3.5-5.1); Protein, Total 5.1 g/dL (5.8-8.1); Sodium 136 mmol/L (136-145)
[2023-09-13] MEDS ORDERED: Lidocaine 1% PF 5 ML VIAL ONE (09:00)
[2023-09-13] MEDS ORDERED: PROPOFOL 200 MG/20 ML VIAL ONE (09:00)
[2023-09-13] MEDS: predniSONE 20 MG TAB PO SCH (10:47)
[2023-09-13] MEDS: Dronedarone HCl 400 MG TAB PO SCH (10:50)
[2023-09-13] MEDS: Potassium Chloride 20 MEQ TAB PO SCH ×2 (11:22→16:20)
[2023-09-13] MEDS: dilTIAZem 30 MG TAB PO SCH (18:05)
[2023-09-14 05:19] LABS: #Monocytes 0.3 thou/uL (0.11-0.59); %Eosinophils 0.8 % (0.0-10.0); %Lymphocytes 4.7 % (21.0-51.0); %Monocytes 9.4 % (0.0-10.0); %Neutrophils 84.3 % (42.0-75.0); Hematocrit 28.7 % (36.0-47.0); Hemoglobin 9.6 g/dL (12.0-16.0); Mean Corpuscular HGB CONC 33.4 g/dL (32.0-36.0); Mean Corpuscular Hemoglobin 28.8 pg (27.0-31.0); Mean Corpuscular Volume 86.2 fl (78.0-98.0); Mean Platelet Volume 12.4 fL (7.4-10.4); Platelet Count 122 10x3/uL (130-400); RBC Distribution Width 19.5 % (11.5-14.5); Red Blood Cell (RBC) Count 3.33 mill/uL (4.20-5.40); White Blood Cell (WBC) Count 3.6 10x3/uL (4.8-10.8)
[2023-09-14 05:48] LABS: ALT (SGPT) 227 U/L (8-55); AST (SGOT) 31 U/L (5-34); Albumin 3.3 g/dL (3.4-4.8); Alkaline Phosphatase 65 U/L (40-110); Anion Gap 11 mmol/L (10-20); BUN (Urea Nitrogen) 23 mg/dL (9.8-20.1); Bilirubin, Total 1.2 mg/dL (0.2-1.2); Calc. Creatinine Clearance 57 mL/min (70-130); Calcium 7.7 mg/dL (7.8-10.44); Carbon Dioxide 22 mmol/L (23-31); Chloride 108 mmol/L (98-107); Estimated GFR 74; Globulin 1.8 g/dL (2.4-3.5); Glucose 111 mg/dL (83-110); Protein, Total 5.1 g/dL (5.8-8.1); Sodium 137 mmol/L (136-145)
[2023-09-14] MEDS ORDERED: dilTIAZem 125 MG in Sodium Chloride 0.9% 100 ML IVPB SCH (06:11)
[2023-09-14] MEDS: dilTIAZem CD 120 MG CAP PO SCH (13:25)
[2023-09-14] MEDS ORDERED: Zinc Oxide 20% Oint 30 GM TUBE TOP PRN (17:50)
[2023-09-14] MEDS: Metoprolol Tartrate 25 MG TAB PO SCH (20:43)
[2023-09-15 04:33] LABS: #Eosinphils 0.1 thou/uL (0.0-0.7); #Monocytes 0.4 thou/uL (0.11-0.59); #Neutrophils 2.5 thou/uL (1.40-6.50); %Eosinophils 1.9 % (0.0-10.0); %Lymphocytes 6.3 % (21.0-51.0); %Monocytes 12.3 % (0.0-10.0); %Neutrophils 78.6 % (42.0-75.0); Hematocrit 33.8 % (36.0-47.0); Hemoglobin 11.3 g/dL (12.0-16.0); Mean Corpuscular HGB CONC 33.4 g/dL (32.0-36.0); Mean Corpuscular Hemoglobin 29.3 pg (27.0-31.0); Mean Corpuscular Volume 87.6 fl (78.0-98.0); Mean Platelet Volume 11.9 fL (7.4-10.4); Platelet Count 123 10x3/uL (130-400); RBC Distribution Width 19.6 % (11.5-14.5); Red Blood Cell (RBC) Count 3.86 mill/uL (4.20-5.40); White Blood Cell (WBC) Count 3.2 10x3/uL (4.8-10.8)
[2023-09-15 05:02] LABS: ALT (SGPT) 206 U/L (8-55); AST (SGOT) 29 U/L (5-34); Albumin 3.6 g/dL (3.4-4.8); Alkaline Phosphatase 69 U/L (40-110); Anion Gap 13 mmol/L (10-20); BUN (Urea Nitrogen) 18 mg/dL (9.8-20.1); Bilirubin, Total 1.5 mg/dL (0.2-1.2); Calc. Creatinine Clearance 60 mL/min (70-130); Calcium 8.5 mg/dL (7.8-10.44); Carbon Dioxide 22 mmol/L (23-31); Chloride 104 mmol/L (98-107); Estimated GFR 78; Globulin 2.2 g/dL (2.4-3.5); Glucose 95 mg/dL (83-110); Potassium 3.7 mmol/L (3.5-5.1); Protein, Total 5.8 g/dL (5.8-8.1); Sodium 135 mmol/L (136-145)
[2023-09-15] MEDS: dilTIAZem CD 120 MG CAP PO SCH (08:16)
[2023-09-15 15:35] VITALS: BP 132/77; TEMP 98.1
== END 2023-09-15 18:02 | disposition home or self-care (01) | DRG 309 ==
LOC: ERS 03:55 → ERHOLD 06:12 → 2NO 16:25
PROVIDERS: ADMIT Emergency Medicine; ATTEND Emergency Medicine
DX: I48.19 Other persistent atrial fibrillation (principal); C79.51 Secondary malignant neoplasm of bone; C90.00 Multiple myeloma not having achieved remission; E87.20 Acidosis, unspecified; Z94.81 Bone marrow transplant status; R74.01 Elevation of levels of liver transaminase levels; R91.8 Other nonspecific abnormal finding of lung field; K21.9 Gastro-esophageal reflux disease without esophagitis; E78.5 Hyperlipidemia, unspecified; Z95.1 Presence of aortocoronary bypass graft; Z90.710 Acquired absence of both cervix and uterus; Z98.890 Other specified postprocedural states; I25.2 Old myocardial infarction; Z79.899 Other long term (current) drug therapy; Z79.01 Long term (current) use of anticoagulants; Z88.2 Allergy status to sulfonamides; I25.10 Atherosclerotic heart disease of native coronary artery without angina pectoris; I50.9 Heart failure, unspecified; I11.0 Hypertensive heart disease with heart failure; Z79.82 Long term (current) use of aspirin; E87.6 Hypokalemia; Z66 Do not resuscitate; Z11.52 Encounter for screening for COVID-19
CPT/HCPCS: 36415; 36416; 71045; 71275; 80053; 82248; 83036; 83605; 83615; 83690; 83735; 83880; 84100; 84443; 84484; 84550; 85025; 85610; 85730; 92960; 93005; 93010; 93306; 96374; 96375; J1940; J2704; J3490; J7120; J7512; Q9967

== ENCOUNTER 2023-09-22 11:51 | Inpatient (IN) | payer MEDICARE, BC ==
[2023-09-22 12:29] LABS: #Monocytes 0.1 thou/uL (0.11-0.59); #Neutrophils 2.9 thou/uL (1.40-6.50); %Basophils 0.3 % (0.0-1.0); %Lymphocytes 3.2 % (21.0-51.0); %Monocytes 3.2 % (0.0-10.0); Hematocrit 33.5 % (36.0-47.0); Hemoglobin 11.1 g/dL (12.0-16.0); Mean Corpuscular HGB CONC 33.1 g/dL (32.0-36.0); Mean Corpuscular Hemoglobin 28.8 pg (27.0-31.0); Mean Platelet Volume 11.4 fL (7.4-10.4); Platelet Count 257 10x3/uL (130-400); RBC Distribution Width 19.6 % (11.5-14.5); Red Blood Cell (RBC) Count 3.85 mill/uL (4.20-5.40); White Blood Cell (WBC) Count 3.1 10x3/uL (4.8-10.8)
[2023-09-22] MEDS ORDERED: dilTIAZem 125 MG/25 ML SDV ONE (12:29)
[2023-09-22 12:56] LABS: ALT (SGPT) 214 U/L (8-55); AST (SGOT) 81 U/L (5-34); Albumin 3.8 g/dL (3.4-4.8); Alkaline Phosphatase 79 U/L (40-110); Anion Gap 14 mmol/L (10-20); BUN (Urea Nitrogen) 22 mg/dL (9.8-20.1); Bilirubin, Total 0.9 mg/dL (0.2-1.2); Calc. Creatinine Clearance 0 mL/min (70-130); Calcium 8.9 mg/dL (7.8-10.44); Carbon Dioxide 26 mmol/L (23-31); Chloride 100 mmol/L (98-107); Estimated GFR 44; Globulin 2.7 g/dL (2.4-3.5); Glucose 174 mg/dL (83-110); Protein, Total 6.5 g/dL (5.8-8.1); Sodium 136 mmol/L (136-145)
[2023-09-22 12:58] LABS: Troponin I 0.019 ng/mL (< 0.028)
[2023-09-22] MEDS ORDERED: Amiodarone 150 MG/3 ML VIAL ONE (13:30)
[2023-09-22] MEDS ORDERED: Ondansetron ODT 4 MG TAB PO PRN (14:16)
[2023-09-22 17:12] LABS: Troponin I Less than 0.010 ng/mL (< 0.028)
[2023-09-22] MEDS: Amiodarone 450 MG, Admixture Fee 1 EACH in Dextrose 5% in Water 250 ML IVPB SCH (19:46)
[2023-09-22] MEDS: Atorvastatin Calcium 40 MG TAB PO SCH (20:51)
[2023-09-22] MEDS: Acyclovir 400 mg Tablet PO SCH (20:51)
[2023-09-22] MEDS: Apixaban 5 MG TAB PO SCH (20:51)
[2023-09-22] MEDS: dilTIAZem 125 MG in Sodium Chloride 0.9% 100 ML IVPB SCH (21:24)
[2023-09-23] MEDS ORDERED: ALPRAZolam 0.25 MG TAB PO PRN (00:45)
[2023-09-23] MEDS: ALPRAZolam 0.5 MG TAB PO PRN (01:23)
[2023-09-23] MEDS: Lactated Ringer's 1,000 ML IV SCH (02:53)
[2023-09-23 06:48] LABS: #Monocytes 0.2 thou/uL (0.11-0.59); #Neutrophils 3.9 thou/uL (1.40-6.50); %Basophils 0.2 % (0.0-1.0); %Lymphocytes 2.6 % (21.0-51.0); %Monocytes 3.8 % (0.0-10.0); %Neutrophils 93.2 % (42.0-75.0); Hematocrit 29.2 % (36.0-47.0); Hemoglobin 9.7 g/dL (12.0-16.0); Mean Corpuscular HGB CONC 33.2 g/dL (32.0-36.0); Mean Corpuscular Hemoglobin 28.9 pg (27.0-31.0); Mean Corpuscular Volume 86.9 fl (78.0-98.0); Mean Platelet Volume 11.9 fL (7.4-10.4); Platelet Count 245 10x3/uL (130-400); RBC Distribution Width 18.9 % (11.5-14.5); Red Blood Cell (RBC) Count 3.36 mill/uL (4.20-5.40); White Blood Cell (WBC) Count 4.2 10x3/uL (4.8-10.8)
[2023-09-23 07:11] LABS: ALT (SGPT) 189 U/L (8-55); AST (SGOT) 60 U/L (5-34); Albumin 3.3 g/dL (3.4-4.8); Alkaline Phosphatase 67 U/L (40-110); Anion Gap 14 mmol/L (10-20); BUN (Urea Nitrogen) 26 mg/dL (9.8-20.1); Bilirubin, Total 0.6 mg/dL (0.2-1.2); Calc. Creatinine Clearance 36 mL/min (70-130); Calcium 8.1 mg/dL (7.8-10.44); Carbon Dioxide 21 mmol/L (23-31); Chloride 100 mmol/L (98-107); Estimated GFR 43; Globulin 2.2 g/dL (2.4-3.5); Glucose 190 mg/dL (83-110); Potassium 3.6 mmol/L (3.5-5.1); Protein, Total 5.5 g/dL (5.8-8.1); Sodium 131 mmol/L (136-145)
[2023-09-23 07:38] LABS: Phosphorus 4.2 mg/dL (2.3-4.7)
[2023-09-23] MEDS: Calcium Carbonate 600 MG + Vit D TAB PO SCH (08:03)
[2023-09-23] MEDS: Cholecalciferol 1,000 UNITS (25 MCG) TAB PO SCH (08:03)
[2023-09-23] MEDS: Aspirin Chewable 81 MG TAB PO SCH (08:03)
[2023-09-23] MEDS: Amiodarone 200 MG TAB PO SCH ×2 (15:20→22:26)
[2023-09-23] MEDS: Lactated Ringer's 500 ML IV SCH ×2 (22:25)
[2023-09-24] MEDS: Furosemide 20 MG (2 mL) VIAL SLOW IVP SCH (01:37)
[2023-09-24 04:39] LABS: #Monocytes 0.2 thou/uL (0.11-0.59); #Neutrophils 5.1 thou/uL (1.40-6.50); %Lymphocytes 2.4 % (21.0-51.0); %Neutrophils 92.9 % (42.0-75.0); Hematocrit 28.9 % (36.0-47.0); Hemoglobin 9.4 g/dL (12.0-16.0); Mean Corpuscular HGB CONC 32.5 g/dL (32.0-36.0); Mean Corpuscular Hemoglobin 29.3 pg (27.0-31.0); Mean Platelet Volume 12.5 fL (7.4-10.4); Platelet Count 240 10x3/uL (130-400); RBC Distribution Width 19.4 % (11.5-14.5); Red Blood Cell (RBC) Count 3.21 mill/uL (4.20-5.40); White Blood Cell (WBC) Count 5.5 10x3/uL (4.8-10.8)
[2023-09-24 05:14] LABS: Albumin 3.3 g/dL (3.4-4.8)
[2023-09-24 05:15] LABS: Chloride 97 mmol/L (98-107); Potassium 4.1 mmol/L (3.5-5.1); Sodium 129 mmol/L (136-145)
[2023-09-24 05:16] LABS: Calcium 8.6 mg/dL (7.8-10.44); Glucose 180 mg/dL (83-110)
[2023-09-24 05:17] LABS: Globulin 2.4 g/dL (2.4-3.5); Protein, Total 5.7 g/dL (5.8-8.1)
[2023-09-24 05:18] LABS: Anion Gap 17 mmol/L (10-20); Carbon Dioxide 19 mmol/L (23-31)
[2023-09-24 05:19] LABS: Alkaline Phosphatase 67 U/L (40-110)
[2023-09-24 05:20] LABS: Calc. Creatinine Clearance 34 mL/min (70-130); Estimated GFR 40
[2023-09-24 05:21] LABS: BUN (Urea Nitrogen) 30 mg/dL (9.8-20.1)
[2023-09-24 05:22] LABS: ALT (SGPT) 169 U/L (8-55); AST (SGOT) 44 U/L (5-34); Bilirubin, Direct 0.4 mg/dL (0.1-0.3)
[2023-09-24 06:00] LABS: Immunoglob - G (Total IgG) 249 mg/dL (552-1631); Immunoglob - M (Total IgM) 13 mg/dL (33-293); Iron 52 ug/dL (50-170); Iron Binding Capacity, Total 290 mcg/dL (265-497)
[2023-09-24 06:30] LABS: HBCM Index 0.05 S/CO (0-0.79); HBSAB Concentration Less than 8.00 mIU/mL; HBSAg Index 0.24 S/CO (0-0.99); Hep A IgM AB Non-Reactive S/CO (NonReactive); Hep B Surf AB Non-Reactive (NonReactive); Hep B Surf Ag Non-Reactive S/CO (NonReactive); Hep C IgG Ab Non-Reactive S/CO (NonReactive); Hep C Index 0.03 S/CO (0-0.79); Hepatitis B Core IgM Abs Non-Reactive S/CO (NonReactive)
[2023-09-24] MEDS ORDERED: PROPOFOL 200 MG/20 ML VIAL ONE (08:00)
[2023-09-25 04:47] LABS: #Monocytes 0.5 thou/uL (0.11-0.59); #Neutrophils 5.2 thou/uL (1.40-6.50); %Lymphocytes 2.5 % (21.0-51.0); %Monocytes 8.5 % (0.0-10.0); %Neutrophils 87.8 % (42.0-75.0); Hematocrit 28.1 % (36.0-47.0); Hemoglobin 9.4 g/dL (12.0-16.0); Mean Corpuscular HGB CONC 33.5 g/dL (32.0-36.0); Mean Corpuscular Hemoglobin 28.8 pg (27.0-31.0); Mean Platelet Volume 11.2 fL (7.4-10.4); Platelet Count 263 10x3/uL (130-400); RBC Distribution Width 19.4 % (11.5-14.5); Red Blood Cell (RBC) Count 3.26 mill/uL (4.20-5.40); White Blood Cell (WBC) Count 5.9 10x3/uL (4.8-10.8)
[2023-09-25 05:11] LABS: ALT (SGPT) 133 U/L (8-55); AST (SGOT) 29 U/L (5-34); Albumin 3.3 g/dL (3.4-4.8); Alkaline Phosphatase 67 U/L (40-110); Anion Gap 13 mmol/L (10-20); BUN (Urea Nitrogen) 31 mg/dL (9.8-20.1); Calc. Creatinine Clearance 39 mL/min (70-130); Calcium 8.2 mg/dL (7.8-10.44); Carbon Dioxide 22 mmol/L (23-31); Chloride 100 mmol/L (98-107); Estimated GFR 48; Globulin 1.9 g/dL (2.4-3.5); Glucose 155 mg/dL (83-110); Potassium 3.8 mmol/L (3.5-5.1); Protein, Total 5.2 g/dL (5.8-8.1); Sodium 131 mmol/L (136-145)
[2023-09-25 05:13] LABS: Mean Corpuscular Volume 86.2 fl (78.0-98.0)
[2023-09-25] MEDS: Potassium Chloride 20 MEQ TAB PO SCH (09:10)
[2023-09-25] MEDS ORDERED: Ipratropium/Albuterol 3 ML NEB NEB PRN (10:07)
[2023-09-25] MEDS: dilTIAZem CD 180 MG CAP PO SCH (10:33)
[2023-09-25] MEDS: Digoxin 0.5 MG/2 ML AMP SLOW IVP SCH (10:33)
[2023-09-26 05:28] LABS: Hematocrit 32.2 % (36.0-47.0); Hemoglobin 10.8 g/dL (12.0-16.0); Manual Diff?? YES; Mean Corpuscular HGB CONC 33.5 g/dL (32.0-36.0); Mean Corpuscular Hemoglobin 29.3 pg (27.0-31.0); Mean Corpuscular Volume 87.3 fl (78.0-98.0); Mean Platelet Volume 11.5 fL (7.4-10.4); Platelet Count 290 10x3/uL (130-400); Red Blood Cell (RBC) Count 3.69 mill/uL (4.20-5.40)
[2023-09-26 05:34] LABS: Delete Auto Diff?? YES
[2023-09-26 06:06] LABS: ALT (SGPT) 109 U/L (8-55); AST (SGOT) 28 U/L (5-34); Albumin 3.2 g/dL (3.4-4.8); Alkaline Phosphatase 71 U/L (40-110); Anion Gap 11 mmol/L (10-20); BUN (Urea Nitrogen) 21 mg/dL (9.8-20.1); Bilirubin, Total 1.1 mg/dL (0.2-1.2); Calc. Creatinine Clearance 49 mL/min (70-130); Calcium 8.1 mg/dL (7.8-10.44); Carbon Dioxide 25 mmol/L (23-31); Chloride 103 mmol/L (98-107); Estimated GFR 60; Globulin 1.9 g/dL (2.4-3.5); Glucose 100 mg/dL (83-110); Potassium 3.6 mmol/L (3.5-5.1); Protein, Total 5.1 g/dL (5.8-8.1); Sodium 135 mmol/L (136-145)
[2023-09-26 06:09] LABS: Burr Cells SLIGHT = 2-5 cells HPF (0-1); CellaVision Operator ID lab.abc; Lymphocytes 2 % (21-51); Monocytes 3 % (0-10); Neutrophil 95 % (42-75); Platelet Adequacy Comment Platelets Normal; Poikilocytosis SLIGHT = 6-15 cells HPF (0-5); Polychromasia SLIGHT = 2-3 cells HPF (0-2); Total Cell Count 100
[2023-09-26] MEDS: dilTIAZem CD 240 MG CAP PO SCH (09:21)
[2023-09-26 12:41] LABS: ANA Symphony (Qualitative) Negative (Negative); ANA Symphony (Quantitative) Less than 0.1 Ratio (< 0.7 Negative); EliA Vaculitis New Method **** NEW METHOD ****; Mitochondrial Ab Less than 0.5 U/mL (<4 Negative); dsDNA IgG Antibody Less than 0.6 IU/mL (<10 Negative)
[2023-09-27 05:54] LABS: #Monocytes 0.3 thou/uL (0.11-0.59); %Basophils 0.2 % (0.0-1.0); %Eosinophils 0.4 % (0.0-10.0); %Lymphocytes 3.6 % (21.0-51.0); %Monocytes 6.3 % (0.0-10.0); %Neutrophils 88.2 % (42.0-75.0); Hematocrit 34.8 % (36.0-47.0); Hemoglobin 11.6 g/dL (12.0-16.0); Mean Corpuscular HGB CONC 33.3 g/dL (32.0-36.0); Mean Corpuscular Hemoglobin 28.6 pg (27.0-31.0); Mean Corpuscular Volume 85.7 fl (78.0-98.0); Mean Platelet Volume 10.9 fL (7.4-10.4); Platelet Count 267 10x3/uL (130-400); RBC Distribution Width 19.9 % (11.5-14.5); Red Blood Cell (RBC) Count 4.06 mill/uL (4.20-5.40); White Blood Cell (WBC) Count 4.5 10x3/uL (4.8-10.8)
[2023-09-27 06:21] LABS: ALT (SGPT) 87 U/L (8-55); AST (SGOT) 21 U/L (5-34); Alkaline Phosphatase 74 U/L (40-110); Anion Gap 11 mmol/L (10-20); BUN (Urea Nitrogen) 15 mg/dL (9.8-20.1); Bilirubin, Total 0.8 mg/dL (0.2-1.2); Calc. Creatinine Clearance 59 mL/min (70-130); Calcium 8.2 mg/dL (7.8-10.44); Carbon Dioxide 25 mmol/L (23-31); Chloride 101 mmol/L (98-107); Estimated GFR 78; Globulin 2.2 g/dL (2.4-3.5); Glucose 108 mg/dL (83-110); Potassium 3.2 mmol/L (3.5-5.1); Protein, Total 5.2 g/dL (5.8-8.1); Sodium 134 mmol/L (136-145)
[2023-09-27 09:01] LABS: Magnesium 1.5 mg/dL (1.6-2.6); Phosphorus 3.4 mg/dL (2.3-4.7)
[2023-09-27] MEDS ORDERED: Electrolyte Replacement Protocol 1 EACH FS SCH (09:30)
[2023-09-27] MEDS: Potassium Chloride 20 MEQ TAB PO SCH (09:47)
[2023-09-27] MEDS: Magnesium 2 GM/50 ML(in water) 2 GM in Premix 1 BAG IVPB SCH (09:48)
[2023-09-27] MEDS: traMADol HCl 50 MG TAB PO PRN (10:00)
[2023-09-27 19:49] LABS: Chloride 96 mmol/L (98-107); Sodium 131 mmol/L (136-145)
[2023-09-27 19:50] LABS: Calcium 8.3 mg/dL (7.8-10.44); Glucose 107 mg/dL (83-110)
[2023-09-27 19:52] LABS: Anion Gap 18 mmol/L (10-20); Carbon Dioxide 22 mmol/L (23-31)
[2023-09-27 19:54] LABS: Calc. Creatinine Clearance 41 mL/min (70-130); Estimated GFR 53
[2023-09-27 19:55] LABS: BUN (Urea Nitrogen) 16 mg/dL (9.8-20.1)
[2023-09-27] MEDS: dilTIAZem CD 120 MG CAP PO SCH (20:23)
[2023-09-28 05:32] LABS: #Monocytes 0.2 thou/uL (0.11-0.59); #Neutrophils 2.5 thou/uL (1.40-6.50); %Basophils 0.3 % (0.0-1.0); %Eosinophils 1.3 % (0.0-10.0); %Neutrophils 83.7 % (42.0-75.0); Hematocrit 33.7 % (36.0-47.0); Hemoglobin 11.2 g/dL (12.0-16.0); Mean Corpuscular HGB CONC 33.2 g/dL (32.0-36.0); Mean Corpuscular Hemoglobin 28.6 pg (27.0-31.0); Mean Platelet Volume 11.2 fL (7.4-10.4); Platelet Count 262 10x3/uL (130-400); RBC Distribution Width 19.7 % (11.5-14.5); Red Blood Cell (RBC) Count 3.92 mill/uL (4.20-5.40)
[2023-09-28 05:45] LABS: ALT (SGPT) 62 U/L (8-55); AST (SGOT) 12 U/L (5-34); Albumin 3.2 g/dL (3.4-4.8); Alkaline Phosphatase 74 U/L (40-110); Anion Gap 13 mmol/L (10-20); BUN (Urea Nitrogen) 12 mg/dL (9.8-20.1); Calc. Creatinine Clearance 55 mL/min (70-130); Calcium 8.2 mg/dL (7.8-10.44); Carbon Dioxide 24 mmol/L (23-31); Chloride 99 mmol/L (98-107); Estimated GFR 76; Glucose 86 mg/dL (83-110); Magnesium 1.8 mg/dL (1.6-2.6); Potassium 3.9 mmol/L (3.5-5.1); Protein, Total 5.2 g/dL (5.8-8.1); Sodium 132 mmol/L (136-145)
[2023-09-28 05:50] LABS: Phosphorus 3.4 mg/dL (2.3-4.7)
[2023-09-28] MEDS: Potassium Chloride 20 MEQ TAB PO SCH (07:30)
[2023-09-28] MEDS: Magnesium 2 GM/50 ML(in water) 2 GM in Premix 1 BAG IVPB SCH (09:12)
[2023-09-28 09:17] VITALS: BP 119/80
[2023-09-29 06:02] LABS: #Eosinphils 0.1 thou/uL (0.0-0.7); #Monocytes 0.3 thou/uL (0.11-0.59); #Neutrophils 2.9 thou/uL (1.40-6.50); %Basophils 0.3 % (0.0-1.0); %Eosinophils 1.8 % (0.0-10.0); %Lymphocytes 5.6 % (21.0-51.0); %Monocytes 8.8 % (0.0-10.0); %Neutrophils 83.2 % (42.0-75.0); Hematocrit 33.6 % (36.0-47.0); Hemoglobin 11.2 g/dL (12.0-16.0); Mean Corpuscular HGB CONC 33.3 g/dL (32.0-36.0); Mean Corpuscular Hemoglobin 29.2 pg (27.0-31.0); Mean Corpuscular Volume 87.7 fl (78.0-98.0); Platelet Count 250 10x3/uL (130-400); RBC Distribution Width 19.7 % (11.5-14.5); Red Blood Cell (RBC) Count 3.83 mill/uL (4.20-5.40); White Blood Cell (WBC) Count 3.4 10x3/uL (4.8-10.8)
[2023-09-29 06:26] LABS: ALT (SGPT) 61 U/L (8-55); AST (SGOT) 21 U/L (5-34); Albumin 3.3 g/dL (3.4-4.8); Alkaline Phosphatase 74 U/L (40-110); Anion Gap 12 mmol/L (10-20); BUN (Urea Nitrogen) 12 mg/dL (9.8-20.1); Calc. Creatinine Clearance 52 mL/min (70-130); Calcium 8.2 mg/dL (7.8-10.44); Carbon Dioxide 24 mmol/L (23-31); Chloride 98 mmol/L (98-107); Estimated GFR 72; Globulin 2.2 g/dL (2.4-3.5); Glucose 89 mg/dL (83-110); Potassium 3.7 mmol/L (3.5-5.1); Protein, Total 5.5 g/dL (5.8-8.1); Sodium 130 mmol/L (136-145)
[2023-09-29 07:49] VITALS: TEMP 97.5
[2023-09-29 13:18] VITALS: BMI 21.9
== END 2023-09-29 14:15 | disposition home or self-care (01) | DRG 309 ==
LOC: ERS 11:51 → ERHOLD 13:59 → IMCU/EMU 15:22
PROVIDERS: ADMIT Emergency Medicine; ATTEND Emergency Medicine
DX: I48.0 Paroxysmal atrial fibrillation (principal); C79.51 Secondary malignant neoplasm of bone; C90.00 Multiple myeloma not having achieved remission; N17.9 Acute kidney failure, unspecified; Z94.81 Bone marrow transplant status; C43.9 Malignant melanoma of skin, unspecified; R91.8 Other nonspecific abnormal finding of lung field; R74.01 Elevation of levels of liver transaminase levels; K21.9 Gastro-esophageal reflux disease without esophagitis; I10 Essential (primary) hypertension; E78.5 Hyperlipidemia, unspecified; F41.9 Anxiety disorder, unspecified; Z66 Do not resuscitate; Z88.2 Allergy status to sulfonamides; Z79.899 Other long term (current) drug therapy; Z79.82 Long term (current) use of aspirin; Z79.01 Long term (current) use of anticoagulants; Z95.1 Presence of aortocoronary bypass graft; Z90.710 Acquired absence of both cervix and uterus; I25.2 Old myocardial infarction; I25.10 Atherosclerotic heart disease of native coronary artery without angina pectoris; Z53.9 Procedure and treatment not carried out, unspecified reason
CPT/HCPCS: 36415; 71045; 76705; 80053; 80074; 82248; 82728; 83516; 83540; 83550; 83735; 83880; 84100; 84443; 84484; 85025; 86015; 86038; 86225; 86705; 86706; 92960; 93005; 96374; J0282; J1160; J1940; J2704; J3475; J3490; J7070; J7120

== ENCOUNTER 2023-10-26 08:00 | Outpatient (CLI) | payer MEDICARE, BC | END 2023-10-26 08:01 | disposition home or self-care (01) | LOC: PET 08:00 | PROVIDERS: ATTEND Internal Medicine Hematology & Oncology | DX: C90.00 Multiple myeloma not having achieved remission (principal); C79.51 Secondary malignant neoplasm of bone | CPT/HCPCS: 78816; A9552 ==

== ENCOUNTER 2024-01-09 08:45 | Outpatient (CLI) | payer MEDICARE, BC | END 2024-01-09 08:46 | disposition home or self-care (01) | LOC: PET 08:45 | PROVIDERS: ATTEND Internal Medicine Hematology & Oncology | DX: C90.00 Multiple myeloma not having achieved remission (principal); C79.51 Secondary malignant neoplasm of bone | CPT/HCPCS: 78816; A9552 ==

== ENCOUNTER 2024-02-12 10:19 | Emergency (ER) | payer MEDICARE, BC ==
[2024-02-12] MEDS ORDERED: Lidocaine 1% w/Epinephrine 1:100K 20 ML VIAL ONE (11:47)
== END 2024-02-12 13:30 | disposition home or self-care (01) ==
LOC: ERS 10:19
DX: T82.838A Hemorrhage due to vascular prosthetic devices, implants and grafts, initial encounter (principal); I10 Essential (primary) hypertension; I25.10 Atherosclerotic heart disease of native coronary artery without angina pectoris; I48.91 Unspecified atrial fibrillation; I25.2 Old myocardial infarction; Z79.01 Long term (current) use of anticoagulants; Z79.899 Other long term (current) drug therapy; Z79.82 Long term (current) use of aspirin; Z95.1 Presence of aortocoronary bypass graft
CPT/HCPCS: 99283

== ENCOUNTER 2024-07-18 08:00 | Outpatient (CLI) | payer MEDICARE, BC | END 2024-07-18 08:01 | disposition home or self-care (01) | LOC: PET 08:00 | PROVIDERS: ATTEND Internal Medicine Hematology & Oncology | DX: C90.00 Multiple myeloma not having achieved remission (principal); C79.51 Secondary malignant neoplasm of bone; R91.1 Solitary pulmonary nodule | CPT/HCPCS: 78816; A9552 ==

== ENCOUNTER 2024-08-02 09:05 | Day surgery (SDC) | payer MEDICARE, BC ==
[2024-08-01 11:59] VITALS: BMI 21.4
[2024-08-02] MEDS ORDERED: EPINEPHrine 1 MG/ML VIAL ONE (10:03)
[2024-08-02] MEDS ORDERED: Lidocaine 1% (PF) 30 ML VIAL ONE (10:03)
[2024-08-02] MEDS ORDERED: PROPOFOL 20 ML ONE (10:42)
[2024-08-02] MEDS ORDERED: fentaNYL PF 100 MCG/2 ML SYRINGE ONE (10:45)
[2024-08-02] MEDS ORDERED: Midazolam HCl 2 mg/2 ml Vial ONE (11:36)
[2024-08-02] MEDS ORDERED: CEFAZOLIN 2 GM VIAL ONE (11:36)
[2024-08-02] MEDS ORDERED: Ondansetron PF 4 MG/2 ML Vial ONE (12:00)
[2024-08-02] MEDS ORDERED: Dexamethasone 4 mg/ml Vial ONE (12:00)
[2024-08-02] MEDS ORDERED: Bupivacaine PF 0.5% 30 ML VIAL ONE (12:01)
[2024-08-02] MEDS ORDERED: ePHEDrine Sulfate 50 MG/10 ML VIAL ONE (12:22)
== END 2024-08-02 14:30 | disposition home or self-care (01) ==
LOC: SDC 09:05
PROVIDERS: ATTEND Thoracic Surgery (Cardiothoracic Vascular Surgery)
PROC: 0JB60ZZ Excision of Chest Subcutaneous Tissue and Fascia, Open Approach (ICD-10-PCS; principal; 2024-08-02)
DX: C90.00 Multiple myeloma not having achieved remission (principal); I10 Essential (primary) hypertension; I25.10 Atherosclerotic heart disease of native coronary artery without angina pectoris; I48.91 Unspecified atrial fibrillation; I25.2 Old myocardial infarction; E78.5 Hyperlipidemia, unspecified; E03.9 Hypothyroidism, unspecified; F41.9 Anxiety disorder, unspecified; H26.9 Unspecified cataract; G62.9 Polyneuropathy, unspecified; Z98.84 Bariatric surgery status; Z90.710 Acquired absence of both cervix and uterus; Z90.89 Acquired absence of other organs; Z95.1 Presence of aortocoronary bypass graft; Z87.891 Personal history of nicotine dependence; Z86.16 Personal history of COVID-19; Z98.890 Other specified postprocedural states; Z88.2 Allergy status to sulfonamides; Z79.890 Hormone replacement therapy; Z79.82 Long term (current) use of aspirin; Z79.01 Long term (current) use of anticoagulants; Z79.899 Other long term (current) drug therapy
CPT/HCPCS: 21556; J0171; J0665; J1100; J2250; J2405; J2704; 88184; 88185; 88189; 88305; 88331; 88341; 88342; 88365

== ENCOUNTER 2024-08-13 12:54 | Outpatient (CLI) | payer MEDICARE, BC | END 2024-08-13 12:55 | disposition home or self-care (01) | LOC: SCSMRI 12:54 | PROVIDERS: ATTEND Family Medicine | DX: M47.22 Other spondylosis with radiculopathy, cervical region (principal); M50.11 Cervical disc disorder with radiculopathy, high cervical region; M50.121 Cervical disc disorder at C4-C5 level with radiculopathy; M50.122 Cervical disc disorder at C5-C6 level with radiculopathy; M50.123 Cervical disc disorder at C6-C7 level with radiculopathy; M50.13 Cervical disc disorder with radiculopathy, cervicothoracic region; M25.78 Osteophyte, vertebrae; M48.02 Spinal stenosis, cervical region; M48.03 Spinal stenosis, cervicothoracic region | CPT/HCPCS: 72050; 72141 ==

== ENCOUNTER 2025-01-28 11:20 | Outpatient (CLI) | payer MEDICARE, BC | END 2025-01-28 11:21 | disposition home or self-care (01) | LOC: BICMAMMO 11:20 | PROVIDERS: ATTEND Family Medicine | DX: M85.89 Other specified disorders of bone density and structure, multiple sites (principal) | CPT/HCPCS: 77080 ==

== ENCOUNTER 2025-05-05 08:45 | Outpatient (CLI) | payer MEDICARE, BC | END 2025-05-05 08:46 | disposition home or self-care (01) | LOC: PET 08:45 | PROVIDERS: ATTEND Internal Medicine Hematology & Oncology | DX: D80.1 Nonfamilial hypogammaglobulinemia (principal); C79.51 Secondary malignant neoplasm of bone; C90.00 Multiple myeloma not having achieved remission; D50.8 Other iron deficiency anemias; M84.48XA Pathological fracture, other site, initial encounter for fracture; M87.88 Other osteonecrosis, other site; R91.1 Solitary pulmonary nodule | CPT/HCPCS: 78815; A9552 ==

== ENCOUNTER 2025-05-27 13:33 | Inpatient (IN) | payer MEDICARE, BC ==
[2025-05-27] MEDS ORDERED: Ondansetron PF 4 MG/2 ML Vial IVP PRN (15:13)
[2025-05-27] MEDS ORDERED: diphenhydrAMINE 25 MG CAP PO PRN (15:13)
[2025-05-27] MEDS ORDERED: Melatonin 3 MG TAB PO PRN (15:13)
[2025-05-27] MEDS ORDERED: Acetaminophen 500 MG TAB PO PRN (15:13)
[2025-05-27] MEDS ORDERED: Dexamethasone 4 MG TAB PO PRN (15:13)
[2025-05-27 15:39] VITALS: BMI 19.7
[2025-05-27] MEDS: Dexamethasone 10 MG/ML VIAL SLOW IVP SCH (20:56)
[2025-05-27] MEDS: Apixaban 5 MG TAB PO SCH (20:56)
[2025-05-27] MEDS: Ezetimibe 10 MG TAB PO SCH (20:56)
[2025-05-28 05:28] LABS: #Basophils Less than 0.03 10x3/uL (0.0-0.2); #Eosinophils Less than 0.03 10x3/uL (0.0-0.7); #Monocytes 0.15 10x3/uL (0.11-0.59); #Neutrophils 4.41 10x3/uL (1.40-6.50); %Basophils 0.2 % (0.0-1.0); %Eosinophils 0.0 % (0.0-10.0); %Lymphocytes 4.8 % (21.0-51.0); %Monocytes 3.1 % (0.0-10.0); %Neutrophils 91.7 % (42.0-75.0); Hematocrit 30.6 % (36.0-47.0); Hemoglobin 10.5 g/dL (12.0-16.0); Mean Corpuscular Hemoglobin 30.3 pg (27.0-31.0); Mean Corpuscular Volume 88.4 fL (78.0-98.0); Platelet Count 197 10x3/uL (130-400); Red Blood Cell (RBC) Count 3.46 mill/uL (4.20-5.40); White Blood Cell (WBC) Count 4.81 10x3/uL (4.8-10.8)
[2025-05-28 05:46] LABS: ALT (SGPT) 15 U/L (Less than 34); AST (SGOT) 25 U/L (11-34); Albumin 3.1 g/dL (3.1-4.5); Alkaline Phosphatase 43 U/L (40-110); Anion Gap 12 mmol/L (10-20); BUN (Urea Nitrogen) 20 mg/dL (9.8-20.1); Bilirubin, Total 0.1 mg/dL (0.3-1.2); Calc. Creatinine Clearance 35 mL/min (70-130); Calcium 8.6 mg/dL (7.8-10.44); Carbon Dioxide 27 mmol/L (23-31); Chloride 97 mmol/L (98-107); Globulin 2.6 g/dL (2.4-3.5); Glucose 215 mg/dL (83-110); Potassium 3.4 mmol/L (3.5-5.1); Sodium 133 mmol/L (136-145)
[2025-05-28] MEDS: cefTRIAXone\\ROCEPHIN 2 GM in Sodium Chloride 0.9% 100 ML IVPB SCH (08:28)
[2025-05-28] MEDS: Pantoprazole 40 MG DR.TAB PO SCH (08:29)
[2025-05-28] MEDS: Metoprolol Succinate XL 25 MG ER.TAB PO SCH (08:29)
[2025-05-28] MEDS: Cholecalciferol 1,000 UNITS (25 MCG) TAB PO SCH (08:29)
[2025-05-28] MEDS: Furosemide 20 MG TAB PO SCH (08:29)
[2025-05-28] MEDS: Aspirin Chewable 81 MG TAB PO SCH (08:29)
[2025-05-28] MEDS: Multivit, Therapeutic 1 TAB PO SCH (08:29)
[2025-05-28] MEDS ORDERED: Electrolyte Replacement Protocol 1 EACH FS PRN (08:37)
[2025-05-28] MEDS ORDERED: PHOS-NAK 1 PKT PACK PO PRN (08:45)
[2025-05-28] MEDS ORDERED: Potassium Chloride 20 MEQ in Premix 1 BAG IVPB PRN (08:45)
[2025-05-28] MEDS ORDERED: Magnesium 2 GM/50 ML(in water) 2 GM in Premix 1 BAG IVPB PRN (08:45)
[2025-05-28] MEDS ORDERED: Dexamethasone 10 MG/ML VIAL SLOW IVP PRN (09:44)
[2025-05-28] MEDS ORDERED: Acetaminophen 500 MG TAB PO PRN (09:45)
[2025-05-28] MEDS ORDERED: SODIUM CHLORIDE 0.9% IV SCH (09:45)
[2025-05-28] MEDS ORDERED: TOCILIZUMAB IV SCH (09:45)
[2025-05-28 19:34] LABS: Potassium 3.6 mmol/L (3.5-5.1)
[2025-05-28] MEDS: metroNIDAZOLE 500 MG TAB PO SCH (21:14)
[2025-05-29] MEDS: ALPRAZolam 0.5 MG TAB PO PRN (00:53)
[2025-05-29 06:16] LABS: #Basophils Less than 0.03 10x3/uL (0.0-0.2); #Eosinophils Less than 0.03 10x3/uL (0.0-0.7); #Monocytes 0.20 10x3/uL (0.11-0.59); #Neutrophils 8.70 10x3/uL (1.40-6.50); %Basophils 0.1 % (0.0-1.0); %Eosinophils 0.0 % (0.0-10.0); %Lymphocytes 2.2 % (21.0-51.0); %Monocytes 2.2 % (0.0-10.0); %Neutrophils 95.1 % (42.0-75.0); Hematocrit 30.3 % (36.0-47.0); Hemoglobin 10.2 g/dL (12.0-16.0); Mean Corpuscular Hemoglobin 30.4 pg (27.0-31.0); Mean Corpuscular Volume 90.2 fL (78.0-98.0); Platelet Count 190 10x3/uL (130-400); Red Blood Cell (RBC) Count 3.36 mill/uL (4.20-5.40); White Blood Cell (WBC) Count 9.15 10x3/uL (4.8-10.8)
[2025-05-29 06:27] LABS: Anion Gap 13 mmol/L (10-20); BUN (Urea Nitrogen) 20 mg/dL (9.8-20.1); Calc. Creatinine Clearance 48 mL/min (70-130); Calcium 8.1 mg/dL (7.8-10.44); Carbon Dioxide 27 mmol/L (23-31); Chloride 104 mmol/L (98-107); Glucose 164 mg/dL (83-110); Potassium 3.7 mmol/L (3.5-5.1); Sodium 140 mmol/L (136-145)
[2025-05-29 10:36] VITALS: BP 134/72; TEMP 97.3
== END 2025-05-29 10:41 | disposition home or self-care (01) | DRG 847 ==
LOC: MSONC 13:33 → OBSVTOIN 05-28 15:52
PROVIDERS: ADMIT Family Medicine; ATTEND Internal Medicine
DX: Z51.11 Encounter for antineoplastic chemotherapy (principal); C90.00 Multiple myeloma not having achieved remission; M86.9 Osteomyelitis, unspecified; I25.10 Atherosclerotic heart disease of native coronary artery without angina pectoris; E78.5 Hyperlipidemia, unspecified; K21.9 Gastro-esophageal reflux disease without esophagitis; I48.0 Paroxysmal atrial fibrillation; I10 Essential (primary) hypertension; E03.9 Hypothyroidism, unspecified; M27.2 Inflammatory conditions of jaws; D70.9 Neutropenia, unspecified; Z98.890 Other specified postprocedural states; Z95.5 Presence of coronary angioplasty implant and graft; Z95.1 Presence of aortocoronary bypass graft; Z98.84 Bariatric surgery status; Z79.82 Long term (current) use of aspirin; Z79.899 Other long term (current) drug therapy; Z79.890 Hormone replacement therapy; Z88.2 Allergy status to sulfonamides
CPT/HCPCS: 80048; 80053; 85025; J0696; J1100